=== PATIENT | male | born 1960 ===

== ENCOUNTER 2018-03-09 23:00 | Inpatient (IN) | payer OTHER ==
[~2018-03-09] VITALS: Ht 170.2 cm; Wt 83.0 kg
[2018-03-09 23:30] VITALS: BP 76/45; PULSE 74; TEMP 36.4; O2SAT 94; Ht 170.2 cm; Wt 83.0 kg
[2018-03-10] VITALS (67 sets, daily range): BP systolic 69–132; BP diastolic 36–99; PULSE 52–91; TEMP 36.4–37.1; O2SAT 83–100
[2018-03-10] MEDS ORDERED: ALPR1TAB3 PO (00:03)
[2018-03-10] MEDS ORDERED: HYDR25TA4 PO (00:03)
[2018-03-10] MEDS ORDERED: NOREPINEPHRINE BIT INJ 8 MG in DEXTROSE 5% 500ML 500 ML IV PRN (00:04)
[2018-03-10] MEDS ORDERED: ICU PROTOCOL FOR HYPERGLYCEMIA PRN (00:15)
[2018-03-10] MEDS ORDERED: ONDANSETRON INJ 2 MG/ML 2 ML VIAL IV PRN ×2 (00:15→11:30)
[2018-03-10] MEDS ORDERED: VANCOMYCIN CONSULT ACTIVE PRN (00:15)
[2018-03-10] MEDS ORDERED: PATIENT'S ALLERGY INFO NEEDS ENTERED SCH (00:30)
[2018-03-10] MEDS: SODIUM CHLORIDE 0.9% 1000ML 1,000 ML IV SCH ×2 (00:34→01:06)
[2018-03-10] MEDS ORDERED: PATIENT'S HEIGHT AND/OR WEIGHT NEEDED SCH (00:45)
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
[2018-03-10 01:07] LABS: HEMOGLOBIN 8.5 g/dL (14.0-18.0); MEAN CELL VOLUME 85.7 fL (80-100); MEAN CORPUSCULAR HEMOGLOBIN 30.4 pg (25-34); MEAN CORPUSCULAR HGB CONC 35.4 g/dl (32-36); MEAN PLATELET VOLUME 8.4 fL (7.4-10.4); PLATELET COUNT 248 K/uL (130-400); RED CELL DISTRIBUTION WIDTH CV 14.1 % (11.5-14.5); RED CELL DISTRIBUTION WIDTH SD 44.4 fL (36.4-46.3); WHITE BLOOD COUNT 20.23 K/uL (4.8-10.8)
[2018-03-10 01:16] LABS: INR 1.2 (0.9-1.1); PTT PATIENT 40.1 SECONDS (21.0-31.0)
[2018-03-10 01:29] LABS: ALBUMIN 1.6 gm/dl (3.4-5.0); ALKALINE PHOSPHATASE 124 U/L (45-117); ALT/SGPT 28 U/L (12-78); AST/SGOT 21 U/L (15-37); BLOOD UREA NITROGEN 36 mg/dl (7-18); CALCIUM 7.1 mg/dl (8.5-10.1); CARBON DIOXIDE 19 mmol/L (21-32); CREATININE 2.65 mg/dl (0.60-1.40); GLUCOSE 107 mg/dl (70-99); LIPASE 140 U/L (73-393); PHOSPHORUS 4.3 mg/dl (2.5-4.9); POTASSIUM 2.6 mmol/L (3.5-5.1); SODIUM 133 mmol/L (136-145); TOTAL PROTEIN 5.7 gm/dl (6.4-8.2)
[2018-03-10] MEDS ORDERED: ALBUT/IPRATROP 3MG/0.5MG NEB 3 ML VIAL INH PRN (01:30)
[2018-03-10 01:47] LABS: BASO % 0.1 %; BASO ABS # 0.03 K/uL (0-0.2); EOS % 0.4 %; EOS ABS # 0.08 K/uL (0-0.5); IG# 0.34 K/uL (0.00-0.02); LYMPH ABS # 1.22 K/uL (1.2-3.4); MONO % 6.4 %; NEUT % 85.4 %; NEUT ABS # 17.26 K/uL (1.4-6.5)
[2018-03-10] MEDS: [UNRECOGNIZED DRUG - OTHER] IV SCH ×4 (01:59→19:51)
[2018-03-10] MEDS: ASCORBIC ACID IV SCH ×4 (01:59→19:51)
[2018-03-10] MEDS: THIAMINE HCL IV SCH ×4 (01:59→19:51)
[2018-03-10 02:14] LABS: SODIUM RANDOM URINE 15 mEq/L
[2018-03-10] MEDS ORDERED: POTASSIUM CHLORIDE 10 MEQ TABCR PO ONE (02:15)
[2018-03-10] MEDS: NORMOSOL R 1,000 ML IV SCH ×3 (02:47→19:51)
[2018-03-10] MEDS: MAGNESIUM SULFATE 1GM / D5W 100 ML IV SCH ×4 (02:47→05:43)
[2018-03-10] MEDS ORDERED: VANCOMYCIN IV 1,000 MG in SODIUM CHLORIDE 0.9% 250ML 250 ML IV ONE (04:00)
[2018-03-10] MEDS: CLINDAMYCIN IV 900 MG in DEXTROSE 5% 100ML 100 ML IV SCH ×3 (05:44→22:31)
[2018-03-10] MEDS: HEPARIN SOD 5000 UNIT/0.5 ML CARP SQ SCH ×3 (05:45→22:32)
[2018-03-10 06:27] LABS: BASO % 0.1 %; BASO ABS # 0.02 K/uL (0-0.2); EOS % 0.4 %; EOS ABS # 0.08 K/uL (0-0.5); HEMOGLOBIN 8.9 g/dL (14.0-18.0); IG# 0.19 K/uL (0.00-0.02); LYMPH % 5.4 %; LYMPH ABS # 1.04 K/uL (1.2-3.4); MEAN CELL VOLUME 85.6 fL (80-100); MEAN CORPUSCULAR HEMOGLOBIN 30.5 pg (25-34); MEAN CORPUSCULAR HGB CONC 35.6 g/dl (32-36); MONO ABS # 0.96 K/uL (0.11-0.59); NEUT % 88.1 %; NEUT ABS # 16.88 K/uL (1.4-6.5); PLATELET COUNT 249 K/uL (130-400); RED CELL DISTRIBUTION WIDTH CV 14.2 % (11.5-14.5); RED CELL DISTRIBUTION WIDTH SD 45.4 fL (36.4-46.3); WHITE BLOOD COUNT 19.17 K/uL (4.8-10.8)
[2018-03-10 07:08] LABS: ALBUMIN 1.6 gm/dl (3.4-5.0); ALKALINE PHOSPHATASE 127 U/L (45-117); ALT/SGPT 27 U/L (12-78); AST/SGOT 24 U/L (15-37); BLOOD UREA NITROGEN 35 mg/dl (7-18); CALCIUM 7.6 mg/dl (8.5-10.1); CARBON DIOXIDE 23 mmol/L (21-32); CREATININE 2.43 mg/dl (0.60-1.40); GLUCOSE 124 mg/dl (70-99); POTASSIUM 2.8 mmol/L (3.5-5.1); SODIUM 137 mmol/L (136-145); TOTAL PROTEIN 5.9 gm/dl (6.4-8.2)
--- NOTE | 2018-03-10 07:32 | DIAGNOSTIC IMAGING REPORT ---
CHEST ONE VIEW PORTABLE CLINICAL HISTORY: sepsis dyspnea COMPARISON STUDY: No previous studies for comparison. FINDINGS: Subsegmental atelectasis left mid and lower lung region. Lungs otherwise appear clear. There are no focal infiltrates. Diaphragms are smooth. IMPRESSION: Subsegmental atelectasis left base. Otherwise negative study. The above report was generated using voice recognition software. It may contain grammatical, syntax or spelling errors. Electronically signed by: Aaron Vega M.D. 03/10/2018 7:30 AM Dictated Date/Time: 03/10/2018 7:30 AM
--- NOTE | 2018-03-10 07:34 | DIAGNOSTIC IMAGING REPORT ---
RENAL ULTRASOUND HISTORY: Acute kidney injury. Assess for hydronephrosis. COMPARISON: None. FINDINGS: Right kidney: 8.9 cm. No hydronephrosis. Moderate cortical atrophy/scarring. There is a 1.7 cm hypoechoic exophytic mass within the interpolar region of the right kidney. This demonstrates color flow consistent with internal vascularity. The right renal vein is patent. Left kidney: 12.1 cm. Mild hydronephrosis. Normal corticomedullary differentiation and cortical thickness. Trace perinephric fluid. Bladder: The bladder is completely decompressed by Mast catheter. There appears to bladder wall thickening. The ureteral jets are not identified. IMPRESSION: 1. Mild left hydronephrosis. 2. A 1.7 cm hypoechoic mass within the right kidney. Dedicated renal CT or renal MRI is recommended to assess for a renal cell carcinoma. 3. Bladder wall thickening. This may be accentuated due to the decompression by the Mast catheter. 4. These findings was called/faxed to the referring physician following dictation. Electronically signed by: Kenton Jones M.D. 03/10/2018 7:32 AM Dictated Date/Time: 03/10/2018 7:29 AM
[2018-03-10] MEDS ORDERED: HYDROCORTISONE IV 100 MG in SYRINGE 0 ML IV ONE (08:30)
[2018-03-10] MEDS: POTASSIUM CHLR 20MEQ / WTR IV SCH ×3 (08:31→12:29)
[2018-03-10] MEDS ORDERED: BUPIVACAINE/EPINEPHRINE 0.5% MPF 1:200,000 30 ML VIAL ONE (08:56)
[2018-03-10] MEDS ORDERED: LIDOCAINE HCL 2% 2 ML VIAL (20MG/ML) ONE (09:15)
[2018-03-10] MEDS ORDERED: PHENYLEPHRINE HCL INJ 10 MG/ML VIAL ONE (09:15)
[2018-03-10] MEDS ORDERED: DEXAMETHASONE SOD INJ 4 MG/ML VIAL ONE (09:15)
[2018-03-10] MEDS ORDERED: NEOSTIGMINE METHYLSULFATE 5 MG/5 ML SYR ONE (09:15)
[2018-03-10] MEDS ORDERED: PROPOFOL IV EMULSION 10 MG/ML 20 ML VIAL ONE ×2 (09:15→11:08)
[2018-03-10] MEDS ORDERED: GLYCOPYRROLATE INJ 0.2 MG/ML VIAL ONE (09:15)
[2018-03-10] MEDS ORDERED: ONDANSETRON INJ 2 MG/ML 2 ML VIAL ONE (09:15)
[2018-03-10] MEDS ORDERED: EpHEDrine SULFATE INJ 50 MG/ML AMP ONE (09:15)
[2018-03-10] MEDS ORDERED: FENTANYL CITRATE INJ 50 MCG/1 ML 2 ML VIAL ONE (09:15)
[2018-03-10] MEDS ORDERED: SUCCINYLCHOLINE CHLORIDE 20 MG/ML 10 ML VIAL IV ONE (09:15)
[2018-03-10] MEDS ORDERED: BACITRACIN 50000 UNIT VIAL ONE (09:18)
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
--- NOTE | 2018-03-10 10:47 | Critical Care Consultation ---
Critical Care Consultation Date of Consultation: Mar 10, 2018. Attending Physician: Antony Carver MD, PhD Reason for Consultation: Severe sepsis with septic shock and acute kidney injury History of Present Illness Patient is a 57-year-old male with a significant past medical history for hypertension and remote history of alcohol abuse who currently takes Xanax as needed and he is gone several months without Xanax previously without any form of withdrawal who noticed a red swollen area in the back of the left leg approximately Tuesday. He was placed on ciprofloxacin which ultimately led to this red swollen area becoming larger and spontaneously opened and was draining. He felt ill and presented [place] emergency department yesterday and was ultimately found to be in acute kidney failure and hypotensive, he was started on Levophed by right femoral central line and resuscitated. They did not have surgical capabilities and patient was transferred here for further evaluation and management. Past Medical/Surgical History As noted above Family History FH: heart disease Social History Smoking Status: Current Every Day Smoker Smokeless Tobacco Use: No Alcohol Use: recovering alcoholic Drug Use: cocaine (Remote history several years ago), marijuana (Last use yesterday) Marital Status: () Occupation Status: other (Works jobs, denies formal employment also denies disability) Allergies Coded Allergies: No Known Allergies (Unverified , 03/10/18) Home Medications Scheduled Alprazolam (Xanax), 1 MG PO QID Hydrochlorothiazide (Hctz), 1 TAB PO DAILY Current Inpatient Medications Current Inpatient Medications Medications (Trade) Dose Ordered Sig/Lianna Route Start Time Stop Time Status Last Admin Dose Admin Norepinephrine Bitartrate 8 mg/ Dextrose 508 ml @ 0 mls/hr Q0M PRN IV 03/10/18 00:04 04/09/18 00:03 03/10/18 00:27 15.4 MLS/HR Acetaminophen (Tylenol Tab) 650 mg Q4H PRN PO 03/10/18 00:15 04/09/18 00:14 Ondansetron HCl (Zofran Inj) 4 mg Q6H PRN IV 03/10/18 00:15 04/09/18 00:14 Miscellaneous Information ([facility] Protocol For Hyperglycemia) 1 ea PRN PRN N/A 03/10/18 00:15 03/12/18 00:14 Vancomycin HCl (Consult) 1 ea UD PRN N/A 03/10/18 00:15 04/09/18 00:14 Clindamycin Phosphate 900 mg/ Dextrose 106 ml @ 100 mls/hr Q8H IV 03/10/18 06:00 03/20/18 05:59 03/10/18 05:44 100 MLS/HR Albuterol/ Ipratropium (Duoneb) 3 ml Q4R PRN INH 03/10/18 01:30 04/09/18 01:29 Heparin Sodium (Porcine) (Heparin Sq 5000 Unit/0.5ml) 5,000 unit Q8 SQ 03/10/18 06:00 04/09/18 05:59 03/10/18 05:45 5,000 UNIT Ascorbic Acid 1500 mg/Thiamine HCl 100 mg/Sodium Chloride 104 ml @ 207 mls/hr Q6H IV 03/10/18 02:00 03/13/18 20:31 03/10/18 07:37 207 MLS/HR Parenteral Electrolyte Solution 1,000 ml @ 150 mls/hr Q6H40M IV 03/10/18 02:15 03/10/18 15:34 03/10/18 02:47 150 MLS/HR Potassium Chloride 20 meq/ Prmx 100 ml @ 50 mls/hr Q2H IV 03/10/18 08:30 03/10/18 14:29 03/10/18 10:15 50 MLS/HR Review of Systems A 10 point review of systems has been obtained and is otherwise negative. Constitutional: + fever, + chills Respiratory: No cough, No sputum, No wheezing, No shortness of breath, No dyspnea on exertion, No dyspnea at rest, No hemoptysis, No problem reported Cardiovascular: No chest pain, No orthopnea, No PND, No edema, No claudication , No palpitations, No problem reported Physical Exam Date Time Temp Pulse Resp B/P (MAP) Pulse Ox O2 Delivery O2 Flow Rate FiO2 03/10/18 10:15 83 6 101/55 (70) 98 03/10/18 10:00 87 7 87/42 (57) 90 Nasal Cannula 2.0 03/10/18 09:45 91 21 81/40 (54) 92 03/10/18 09:30 91 16 89/38 (55) 94 03/10/18 09:00 91 22 74/50 (58) 94 03/10/18 08:45 90 23 96/49 (65) 03/10/18 08:30 87 20 98/58 (71) 03/10/18 08:15 83 23 113/59 (77) 100 03/10/18 08:00 36.8 82 20 111/66 (81) 94 Nasal Cannula 2.0 03/10/18 08:00 Room Air 03/10/18 07:45 81 19 113/66 (82) 03/10/18 07:30 82 14 105/72 (83) 98 03/10/18 07:15 77 18 93/56 (68) 94 03/10/18 07:00 79 21 88/63 (71) 95 03/10/18 05:58 79 16 106/57 (73) 93 Nasal Cannula 2.0 03/10/18 05:01 84 23 111/61 (78) 92 Nasal Cannula 2.0 03/10/18 04:01 37.1 77 18 108/59 (75) 03/10/18 03:31 78 17 96/63 (74) 95 Nasal Cannula 2.0 03/10/18 03:01 82 16 109/62 (78) 03/10/18 02:31 77 15 108/58 (75) 97 Nasal Cannula 2.0 03/10/18 02:01 72 15 102/57 (72) 99 Nasal Cannula 2.0 03/10/18 01:46 77 14 115/60 (78) 91 Nasal Cannula 2.0 03/10/18 01:33 73 17 78/50 (59) 97 Nasal Cannula 2.0 03/10/18 01:31 71 21 73/45 (54) 03/10/18 01:14 78 16 96/63 (74) 98 Nasal Cannula 2.0 03/10/18 01:01 75 15 73/41 (52) 03/10/18 00:48 73 17 88/50 (63) 96 Nasal Cannula 2.0 03/10/18 00:31 74 22 76/54 (61) 91 Room Air 03/10/18 00:22 76 24 101/70 (80) 03/10/18 00:01 72 16 69/36 (47) 97 Room Air 03/10/18 00:01 94 Room Air 03/09/18 23:30 36.4 74 16 76/45 94 Room Air General Appearance: WD/WN, moderate distress Head: normocephalic, atraumatic ENT: other (Airway patent) Neck: normal range of motion, no tenderness, trachea midline Respiratory: rhonchi (Scattered bilaterally) Cardiovasular: normal S1S2, abnormal pulses (Decreased perfusion, mildly decreased capillary refill) Genitourinary - Male: other (Mast present) Lower Extremities: other (Area of erythema and draining wound in the popliteal fossa of left lower extremity) Edema: LLE (1+) Pulses: radial (R) (1+), radial (L) (1+) Neuro: alert, oriented x 3, normal motor exam Psychiatric: normal affect Laboratory Results Last 24 Hours Test 03/10/18 00:44 03/10/18 01:03 03/10/18 01:11 03/10/18 01:30 White Blood Count 20.23 K/uL Red Blood Count 2.80 M/uL Hemoglobin 8.5 g/dL Hematocrit 24.0 % Mean Corpuscular Volume 85.7 fL Mean Corpuscular Hemoglobin 30.4 pg Mean Corpuscular Hemoglobin Concent 35.4 g/dl Platelet Count 248 K/uL Mean Platelet Volume 8.4 fL Neutrophils (%) (Auto) 85.4 % Lymphocytes (%) (Auto) 6.0 % Monocytes (%) (Auto) 6.4 % Eosinophils (%) (Auto) 0.4 % Basophils (%) (Auto) 0.1 % Neutrophils # (Auto) 17.26 K/uL Lymphocytes # (Auto) 1.22 K/uL Monocytes # (Auto) 1.30 K/uL Eosinophils # (Auto) 0.08 K/uL Basophils # (Auto) 0.03 K/uL RDW Standard Deviation 44.4 fL RDW Coefficient of Variation 14.1 % Immature Granulocyte % (Auto) 1.7 % Immature Granulocyte # (Auto) 0.34 K/uL Dohle Bodies 1+ Prothrombin Time 13.0 SECONDS Prothromb Time International Ratio 1.2 Activated Partial Thromboplast Time 40.1 SECONDS Partial Thromboplastin Ratio 1.5 Sodium Level 133 mmol/L Potassium Level 2.6 mmol/L Chloride Level 103 mmol/L Carbon Dioxide Level 19 mmol/L Anion Gap 11.0 mmol/L Blood Urea Nitrogen 36 mg/dl Creatinine 2.65 mg/dl Est Creatinine Clear Calc Drug Dose 30.8 ml/min Estimated GFR () 29.3 Estimated GFR (Non- 25.2 BUN/Creatinine Ratio 13.5 Random Glucose 107 mg/dl Lactic Acid Level 0.7 mmol/L Calcium Level 7.1 mg/dl Phosphorus Level 4.3 mg/dl Magnesium Level 1.2 mg/dl Total Bilirubin 1.0 mg/dl Direct Bilirubin 0.6 mg/dl Aspartate Amino Transf (AST/SGOT) 21 U/L Alanine Aminotransferase (ALT/SGPT) 28 U/L Alkaline Phosphatase 124 U/L Total Creatine Kinase 44 U/L Troponin I < 0.015 ng/ml Total Protein 5.7 gm/dl Albumin 1.6 gm/dl Globulin 4.1 gm/dl Albumin/Globulin Ratio 0.4 Lipase 140 U/L Random Cortisol 12.84 mcg/dl Ethyl Alcohol mg/dL < 3.0 mg/dl Hepatitis C Antibody Screen NEG Venous Blood pH 7.27 Venous Blood Partial Pressure CO2 48 mmHg Venous Blood Partial Pressure O2 32 mmHg Venous Blood HCO3 22 mmol/L Venous Blood Oxygen Saturation < 60.0 % Venous Blood Base Excess -5.0 mEq/L Urine Color YELLOW Urine Appearance CLOUDY Urine pH 5.0 Urine Specific Alexander 1.008 Urine Protein 1+ Urine Glucose (UA) NEG Urine Ketones NEG Urine Occult Blood NEG Urine Nitrite NEG Urine Bilirubin NEG Urine Urobilinogen NEG Urine Leukocyte Esterase NEG Urine WBC (Auto) 1-5 /hpf Urine RBC (Auto) 0-4 /hpf Urine Hyaline Casts (Auto) 5-10 /lpf Urine Epithelial Cells (Auto) >30 /lpf Urine Bacteria (Auto) NEG Urine Yeast (Auto) Urine Random Sodium 15 mEq/L Urine Random Urea Nitrogen 305 mg/dl Urine Opiates Screen POS Urine Methadone, Qualitative NEG Urine Barbiturates NEG Urine Phencyclidine (PCP) Level NEG Ur Amphetamine/Methamphetamine NEG MDMA (Ecstasy) Screen NEG Urine Benzodiazepines Screen POS Urine Cocaine Metabolite NEG Urine Marijuana (THC) POS Test 03/10/18 06:12 White Blood Count 19.17 K/uL Red Blood Count 2.92 M/uL Hemoglobin 8.9 g/dL Hematocrit 25.0 % Mean Corpuscular Volume 85.6 fL Mean Corpuscular Hemoglobin 30.5 pg Mean Corpuscular Hemoglobin Concent 35.6 g/dl Platelet Count 249 K/uL Mean Platelet Volume 8.0 fL Neutrophils (%) (Auto) 88.1 % Lymphocytes (%) (Auto) 5.4 % Monocytes (%) (Auto) 5.0 % Eosinophils (%) (Auto) 0.4 % Basophils (%) (Auto) 0.1 % Neutrophils # (Auto) 16.88 K/uL Lymphocytes # (Auto) 1.04 K/uL Monocytes # (Auto) 0.96 K/uL Eosinophils # (Auto) 0.08 K/uL Basophils # (Auto) 0.02 K/uL RDW Standard Deviation 45.4 fL RDW Coefficient of Variation 14.2 % Immature Granulocyte % (Auto) 1.0 % Immature Granulocyte # (Auto) 0.19 K/uL Dohle Bodies 1+ Sodium Level 137 mmol/L Potassium Level 2.8 mmol/L Chloride Level 104 mmol/L Carbon Dioxide Level 23 mmol/L Anion Gap 10.0 mmol/L Blood Urea Nitrogen 35 mg/dl Creatinine 2.43 mg/dl Est Creatinine Clear Calc Drug Dose 33.6 ml/min Estimated GFR () 32.5 Estimated GFR (Non- 28.0 BUN/Creatinine Ratio 14.5 Random Glucose 124 mg/dl Calcium Level 7.6 mg/dl Magnesium Level 2.4 mg/dl Total Bilirubin 0.9 mg/dl Direct Bilirubin mg/dl Aspartate Amino Transf (AST/SGOT) 24 U/L Alanine Aminotransferase (ALT/SGPT) 27 U/L Alkaline Phosphatase 127 U/L Total Protein 5.9 gm/dl Albumin 1.6 gm/dl Chemistry Specimen Hemolysis Assessment & Plan Reason Critically Ill: 57-year-old male who is in severe sepsis secondary to a complicated skin and soft tissue infection of the left lower extremity PLAN: Neuro: History of alcohol abuse -Xanax 0.5 mg p.o. every 6 hours as needed anxiety Resp: Supplemental oxygen as needed Tobacco dependence -Smoking cessation CV: Hypotension -Likely secondary to sepsis -Reviewed random cortisol given 100 mg Solu-Cortef bolus 1 Fluids/Renal: Acute kidney injury Hypokalemia -60 meq KCl via IV -Given 40 mEq by mouth earlier -Recheck BMP at 2 PM ID: Severe sepsis with septic shock -Vancomycin and clindamycin -Going urgently to operating room for source control GI/Nutrition: Hypoalbuminemia -Unclear etiology may represent poor nutritional intake N.p.o. prior to surgery Heme: DVT prophylaxis -Heparin 5000 units every 8 hours Anemia -Unclear etiology at this time we will send iron studies: Ferritin within normal limits trans-ferritin and saturation is low which can be seen in the setting of acute disease -Reticulocyte count within normal limits -Question pre-existing renal disease since patient was hypokalemic and possibly low on erythropoietin, will send haptoglobin to exclude hemolysis Endocrine: Possible relative adrenal insufficiency -Solu-Cortef 1 -Send TSH and T4: Within normal limits Vascular access: Right femoral triple-lumen Code Status: Full I have personally spent 60 minutes of critical care time in the direct management of this patient. This is a life/limb threatening event. This includes time spent evaluating patient, direct bedside care, chart review, placing orders, interpretation of diagnostic studies, discussion with consultants, patient, and/or family members regarding treatment decisions, as well as other required patient management activities. This time is exclusive of all separately billable procedures, and teaching time and separate from and in addition to any other critical care service time.
[2018-03-10] MEDS ORDERED: KETAMINE HCL INJ 50 MG/ML 10 ML VIAL ONE (10:56)
[2018-03-10] MEDS ORDERED: FAMOTIDINE IV INJ 20 MG in SYRINGE 3 ML IV SCH (11:00)
--- NOTE | 2018-03-10 11:08 | [facility] Post Operative Brief Note ---
Immediate Operative Summary Operative Date Mar 10, 2018. Pre-Operative Diagnosis abcess left posterior leg Post-Operative Diagnosis same Procedure(s) Performed incision and drainage/sharp debridement LLE wound/abcess Surgeon Marek Oracle Erp Architect Surgeon(s) GARRETT David Estimated Blood Loss 5 cc Findings Consistent with Post-Op Diagnosis Specimens wound cx Drains None Complication(s) none
[2018-03-10] MEDS ORDERED: ETOMIDATE 2 MG/ML 20 ML VIAL IV ONE (11:09)
[2018-03-10] MEDS ORDERED: EpHEDrine SULFATE INJ 50 MG/ML AMP IV PRN (11:30)
[2018-03-10] MEDS ORDERED: ATROPINE SULFATE 0.1 MG/ML 5ML SYR IV PRN (11:30)
[2018-03-10] MEDS ORDERED: FENTANYL CITRATE INJ 50 MCG/1 ML 2 ML VIAL IV PRN (11:30)
[2018-03-10] MEDS: ALPRAZOLAM 0.5 MG TAB PO PRN (11:32)
--- NOTE | 2018-03-10 12:08 | [facility] Operative Report ---
Operative Report Operative Date Mar 10, 2018. Pre-Operative Diagnosis abcess left posterior leg Post-Operative Diagnosis same Procedure(s) Performed incision and drainage/sharp debridement LLE wound/abcess Surgeon Marek Punch Machine Operator Surgeon(s) GARRETT Dvaid Estimated Blood Loss 5 cc Specimens wound cx Drains None Anesthesia Type MAC Complication(s) none Description of Procedure After informed consent was obtained the patient was brought from the intensive care unit to the operating room and placed in supine position. IV sedation was administered by anesthesia and titrated to effect. After this we put him in a frog-leg position and sterilely prepped and draped the area of the abscess. There was already a small opening in the skin. I used a 15 blade scalpel to extend this both laterally and medially. I did take wound cultures. There was a small amount of debris which I used a sharp knife to excise. This included skin and soft tissue down the muscle itself. I finger fractionated any necrotic looking tissue. I opened the incision to where there was no more undermining. I then thoroughly irrigated the wound. I packed with half-inch iodoform packing covered with gauze and Kerry wrap. The patient was then awakened and transferred to the intensive care unit in guarded condition. I attest to the content of the Intraoperative Record and any orders documented therein. Any exceptions are noted below.
[2018-03-10 12:14] LABS: RETIC COUNT % 1.2 % (0.5-2.0)
--- NOTE | 2018-03-10 12:15 | Anesthesiology Progress Note ---
Anesthesia Post Op Note Date & Time Mar 10, 2018 at 12:15 Vital Signs Pain Intensity: 0 Vital Signs Past 12 Hours Date Time Temp Pulse Resp B/P (MAP) Pulse Ox O2 Delivery O2 Flow Rate FiO2 03/10/18 12:02 36.4 75 15 82/48 94 Room Air 03/10/18 11:52 75 16 88/42 97 Room Air 03/10/18 11:42 72 16 95/62 92 Room Air 03/10/18 11:32 75 16 105/66 94 Room Air 03/10/18 11:22 36.4 78 14 81/47 94 Room Air 03/10/18 10:15 83 6 101/55 (70) 98 03/10/18 10:00 87 7 87/42 (57) 90 Nasal Cannula 2.0 03/10/18 09:45 91 21 81/40 (54) 92 03/10/18 09:30 91 16 89/38 (55) 94 03/10/18 09:00 91 22 74/50 (58) 94 03/10/18 08:45 90 23 96/49 (65) 03/10/18 08:30 87 20 98/58 (71) 03/10/18 08:15 83 23 113/59 (77) 100 03/10/18 08:00 36.8 82 20 111/66 (81) 94 Nasal Cannula 2.0 03/10/18 08:00 Room Air 03/10/18 07:45 81 19 113/66 (82) 03/10/18 07:30 82 14 105/72 (83) 98 03/10/18 07:15 77 18 93/56 (68) 94 03/10/18 07:00 79 21 88/63 (71) 95 03/10/18 05:58 79 16 106/57 (73) 93 Nasal Cannula 2.0 03/10/18 05:01 84 23 111/61 (78) 92 Nasal Cannula 2.0 03/10/18 04:01 37.1 77 18 108/59 (75) 03/10/18 03:31 78 17 96/63 (74) 95 Nasal Cannula 2.0 03/10/18 03:01 82 16 109/62 (78) 03/10/18 02:31 77 15 108/58 (75) 97 Nasal Cannula 2.0 03/10/18 02:01 72 15 102/57 (72) 99 Nasal Cannula 2.0 03/10/18 01:46 77 14 115/60 (78) 91 Nasal Cannula 2.0 03/10/18 01:33 73 17 78/50 (59) 97 Nasal Cannula 2.0 03/10/18 01:31 71 21 73/45 (54) 03/10/18 01:14 78 16 96/63 (74) 98 Nasal Cannula 2.0 03/10/18 01:01 75 15 73/41 (52) 03/10/18 00:48 73 17 88/50 (63) 96 Nasal Cannula 2.0 03/10/18 00:31 74 22 76/54 (61) 91 Room Air 03/10/18 00:22 76 24 101/70 (80) Notes Mental Status: alert / awake / arousable, participated in evaluation Pt Amnestic to Procedure: Yes Nausea / Vomiting: adequately controlled Pain: adequately controlled Airway Patency, RR, SpO2: stable & adequate BP & HR: stable & adequate Hydration State: stable & adequate Anesthetic Complications: no major complications apparent
[2018-03-10 12:59] LABS: CALCIUM 7.9 mg/dl (8.5-10.1); CREATININE 2.57 mg/dl (0.60-1.40); POTASSIUM 3.6 mmol/L (3.5-5.1)
--- NOTE | 2018-03-10 13:47 | Pharmacy Progress Note ---
Pharmacy Abx Dose Short Note Date of Service Mar 10, 2018. Assessment & Plan Assessment * 57 year old male transferred from [facility] secondary to septic shock likely from LLE cellulitis w/ open draining wound on posterior L knee * Currently requiring vasopressors (norepi), hydrocortisone IV x 1 given this AM for marginal random cortisol in the setting of significant stress * Off to OR for source control this AM * Pt had been receiving levofloxacin for several days prior to admission. Empiric Vancomycin + Clindamycin ordered. * Lactate not elevated, leukocytosis present on labs, procal ordered w/ AM labs tomorrow * SCr elevated. Baseline renal fxn unclear. U.O. good since admission. * BLCX's and leg drainage CX's pending. Nares were not colonized with MRSA Plan Vancomycin * Received 1000mg TOP STEEP TENDER 03/09 @2100 * Additional 1000mg x 1 given this AM @421 to complete loading * Maint dose: 1250mg (14.5mg/kg) IV Q 24 hours * Goal trough level for sepsis : 15 to 20 mcg/mL * Trough level ordered 03/13/18 w/ 3rd maint dose * P'kinetic estimates: Vd 0.7L/kg; half-life ~21-22 hours Pharmacy will continue to follow and will adjust dose/frequency as necessary. Thank you.
--- NOTE | 2018-03-10 14:05 | DIAGNOSTIC IMAGING REPORT ---
LOWER EXT JOINT WITHOUT CLINICAL HISTORY: 57 years-old Male presenting with septic shock, wound in popliteal fossa. TECHNIQUE: Multisequence, multiplanar MR imaging of the left knee was performed without the use of intravenous contrast. IV contrast: None. COMPARISON: 03/09/2018. FINDINGS: Localizer images: Unremarkable. Bone marrow: Normal bone marrow signal intensity. No bony edema. Articular cartilage: Articular cartilage preserved. Menisci: Medial and lateral menisci intact. Cruciate ligaments: Anterior and posterior cruciate ligaments intact. Collateral ligaments: Medial collateral ligament intact. Lateral collateral ligament complex including the biceps femoris tendon, fibular collateral ligament, popliteal tendon, and iliotibial band intact. Quadriceps and patellar tendons: Increased signal intensity of the origin of the patellar tendon consistent with tendinosis. Medial and lateral patellar retinacula intact. Quadriceps tendon intact. Joint effusion: Small knee joint effusion. No popliteal cyst. Muscle: Normal muscle bulk and muscle signal intensity. Superficial soft tissue: Extensive subcutaneous edema in the posterior and medial aspect of the knee at the level of the popliteal fossa. There is an open wound at this site with packing material. The wound does not extend deep to the muscular fascia. Allowing for noncontrast technique, no gross evidence of an abscess. IMPRESSION: 1. Open wound at the medial aspect of the popliteal fossa with extensive surrounding cellulitis. Inflammatory change does not extend deep to the muscular fascia. No gross evidence of abscess. No osteomyelitis. 2. Small knee joint effusion. 3. Patellar tendinosis. Electronically signed by: Jose Manuel Silva M.D. 03/10/2018 2:03 PM Dictated Date/Time: 03/10/2018 1:56 PM
--- NOTE | 2018-03-10 15:23 | Progress Note ---
Subjective Date of Service: Mar 10, 2018. Subjective Pt evaluation today including: conversation w/ patient, physical exam, chart review, lab review, review of studies, conversation w/ decorator consultant, review of inpatient medication list Patient came back from the operation room S/P abbess left posterior leg I&D, mild confused, he is pleasant, Review of Systems Constitutional: + problem reported (Not able to obtain because he just came out from the operation room, mild lethargic) Objective Vital Signs Date Time Temp Pulse Resp B/P (MAP) Pulse Ox O2 Delivery O2 Flow Rate FiO2 03/10/18 14:45 60 14 99/61 (74) 98 Nasal Cannula 2.0 03/10/18 14:30 60 15 101/64 (76) 98 Nasal Cannula 2.0 03/10/18 14:15 61 11 94/64 (74) 87 Room Air 03/10/18 14:00 56 16 132/73 (92) 96 Room Air 03/10/18 12:31 71 18 100/52 (68) 03/10/18 12:26 74 16 105/55 (72) 92 Room Air 03/10/18 12:23 77 17 93/47 (62) 83 03/10/18 12:16 75 19 89/58 (68) 93 03/10/18 12:11 69 20 81/57 (65) 96 03/10/18 12:05 36.4 74 15 82/48 (59) 93 Room Air 03/10/18 12:02 36.4 75 15 82/48 94 Room Air 03/10/18 11:52 75 16 88/42 97 Room Air 03/10/18 11:42 72 16 95/62 92 Room Air 03/10/18 11:32 75 16 105/66 94 Room Air 03/10/18 11:22 36.4 78 14 81/47 94 Room Air 03/10/18 10:15 83 6 101/55 (70) 98 03/10/18 10:00 87 7 87/42 (57) 90 Nasal Cannula 2.0 03/10/18 09:45 91 21 81/40 (54) 92 03/10/18 09:30 91 16 89/38 (55) 94 03/10/18 09:00 91 22 74/50 (58) 94 03/10/18 08:45 90 23 96/49 (65) 03/10/18 08:30 87 20 98/58 (71) 03/10/18 08:15 83 23 113/59 (77) 100 03/10/18 08:00 36.8 82 20 111/66 (81) 94 Nasal Cannula 2.0 03/10/18 08:00 Nasal Cannula 03/10/18 08:00 Room Air 03/10/18 07:45 81 19 113/66 (82) 03/10/18 07:30 82 14 105/72 (83) 98 03/10/18 07:15 77 18 93/56 (68) 94 03/10/18 07:00 79 21 88/63 (71) 95 03/10/18 05:58 79 16 106/57 (73) 93 Nasal Cannula 2.0 03/10/18 05:01 84 23 111/61 (78) 92 Nasal Cannula 2.0 03/10/18 04:01 37.1 77 18 108/59 (75) 03/10/18 03:31 78 17 96/63 (74) 95 Nasal Cannula 2.0 03/10/18 03:01 82 16 109/62 (78) 03/10/18 02:31 77 15 108/58 (75) 97 Nasal Cannula 2.0 03/10/18 02:01 72 15 102/57 (72) 99 Nasal Cannula 2.0 03/10/18 01:46 77 14 115/60 (78) 91 Nasal Cannula 2.0 03/10/18 01:33 73 17 78/50 (59) 97 Nasal Cannula 2.0 03/10/18 01:31 71 21 73/45 (54) 03/10/18 01:14 78 16 96/63 (74) 98 Nasal Cannula 2.0 03/10/18 01:01 75 15 73/41 (52) 03/10/18 00:48 73 17 88/50 (63) 96 Nasal Cannula 2.0 03/10/18 00:31 74 22 76/54 (61) 91 Room Air 03/10/18 00:22 76 24 101/70 (80) 03/10/18 00:01 72 16 69/36 (47) 97 Room Air 03/10/18 00:01 94 Room Air 03/09/18 23:30 36.4 74 16 76/45 94 Room Air Physical Exam General Appearance: WD/WN, no apparent distress, + thin, + pertinent finding ( Chronic ill looking) Eyes: normal inspection, PERRL, EOMI, sclerae normal ENT: normal ENT inspection, hearing grossly normal, pharynx normal Neck: supple, no adenopathy, thyroid normal, no JVD, no carotid bruits, trachea midline Respiratory/Chest: chest non-tender, normal breath sounds, no respiratory distress, no accessory muscle use, + decreased breath sounds Cardiovascular: regular rate, rhythm, no edema, no gallop, no JVD, no murmur Abdomen: normal bowel sounds, non tender, soft, no organomegaly, no pulsatile mass Extremities: normal range of motion, non-tender, normal inspection, no pedal edema, no calf tenderness, normal capillary refill, pelvis stable Neurologic/Psychiatric: 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4 % Basophils (%) (Auto) 0.1 % Neutrophils # (Auto) 17.26 K/uL Lymphocytes # (Auto) 1.22 K/uL Monocytes # (Auto) 1.30 K/uL Eosinophils # (Auto) 0.08 K/uL Basophils # (Auto) 0.03 K/uL RDW Standard Deviation 44.4 fL RDW Coefficient of Variation 14.1 % Immature Granulocyte % (Auto) 1.7 % Immature Granulocyte # (Auto) 0.34 K/uL Dohle Bodies 1+ Prothrombin Time 13.0 SECONDS Prothromb Time International Ratio 1.2 Activated Partial Thromboplast Time 40.1 SECONDS Partial Thromboplastin Ratio 1.5 Sodium Level 133 mmol/L Potassium Level 2.6 mmol/L Chloride Level 103 mmol/L Carbon Dioxide Level 19 mmol/L Anion Gap 11.0 mmol/L Blood Urea Nitrogen 36 mg/dl Creatinine 2.65 mg/dl Est Creatinine Clear Calc Drug Dose 30.8 ml/min Estimated GFR () 29.3 Estimated GFR (Non- 25.2 BUN/Creatinine Ratio 13.5 Random Glucose 107 mg/dl Lactic Acid Level 0.7 mmol/L Calcium Level 7.1 mg/dl Phosphorus Level 4.3 mg/dl Magnesium Level 1.2 mg/dl Total Bilirubin 1.0 mg/dl Direct Bilirubin 0.6 mg/dl Aspartate Amino Transf (AST/SGOT) 21 U/L Alanine Aminotransferase (ALT/SGPT) 28 U/L Alkaline Phosphatase 124 U/L Total Creatine Kinase 44 U/L Troponin I < 0.015 ng/ml Total Protein 5.7 gm/dl Albumin 1.6 gm/dl Globulin 4.1 gm/dl Albumin/Globulin Ratio 0.4 Lipase 140 U/L Random Cortisol 12.84 mcg/dl Ethyl Alcohol mg/dL < 3.0 mg/dl Hepatitis C Antibody Screen NEG Venous Blood pH 7.27 Venous Blood Partial Pressure CO2 48 mmHg Venous Blood Partial Pressure O2 32 mmHg Venous Blood HCO3 22 mmol/L Venous Blood Oxygen Saturation < 60.0 % Venous Blood Base Excess -5.0 mEq/L Urine Color YELLOW Urine Appearance CLOUDY Urine pH 5.0 Urine Specific Union 1.008 Urine Protein 1+ Urine Glucose (UA) NEG Urine Ketones NEG Urine Occult Blood NEG Urine Nitrite NEG Urine Bilirubin NEG Urine Urobilinogen NEG Urine Leukocyte Esterase NEG Urine WBC (Auto) 1-5 /hpf Urine RBC (Auto) 0-4 /hpf Urine Hyaline Casts (Auto) 5-10 /lpf Urine Epithelial Cells (Auto) >30 /lpf Urine Bacteria (Auto) NEG Urine Yeast (Auto) Urine Random Sodium 15 mEq/L Urine Random Urea Nitrogen 305 mg/dl Urine Opiates Screen POS Urine Methadone, Qualitative NEG Urine Barbiturates NEG Urine Phencyclidine (PCP) Level NEG Ur Amphetamine/Methamphetamine NEG MDMA (Ecstasy) Screen NEG Urine Benzodiazepines Screen POS Urine Cocaine Metabolite NEG Urine Marijuana (THC) POS Test 03/10/18 06:12 03/10/18 12:05 03/10/18 12:06 03/10/18 14:11 White Blood Count 19.17 K/uL Red Blood Count 2.92 M/uL Hemoglobin 8.9 g/dL Hematocrit 25.0 % Mean Corpuscular Volume 85.6 fL Mean Corpuscular Hemoglobin 30.5 pg Mean Corpuscular Hemoglobin Concent 35.6 g/dl Platelet Count 249 K/uL Mean Platelet Volume 8.0 fL Neutrophils (%) (Auto) 88.1 % Lymphocytes (%) (Auto) 5.4 % Monocytes (%) (Auto) 5.0 % Eosinophils (%) (Auto) 0.4 % Basophils (%) (Auto) 0.1 % Neutrophils # (Auto) 16.88 K/uL Lymphocytes # (Auto) 1.04 K/uL Monocytes # (Auto) 0.96 K/uL Eosinophils # (Auto) 0.08 K/uL Basophils # (Auto) 0.02 K/uL RDW Standard Deviation 45.4 fL RDW Coefficient of Variation 14.2 % Immature Granulocyte % (Auto) 1.0 % Immature Granulocyte # (Auto) 0.19 K/uL Dohle Bodies 1+ Sodium Level 137 mmol/L 139 mmol/L Potassium Level 2.8 mmol/L 3.6 mmol/L Chloride Level 104 mmol/L 107 mmol/L Carbon Dioxide Level 23 mmol/L 20 mmol/L Anion Gap 10.0 mmol/L 12.0 mmol/L Blood Urea Nitrogen 35 mg/dl 32 mg/dl Creatinine 2.43 mg/dl 2.57 mg/dl Est Creatinine Clear Calc Drug Dose 33.6 ml/min 32.4 ml/min Estimated GFR () 32.5 30.4 Estimated GFR (Non- 28.0 26.2 BUN/Creatinine Ratio 14.5 12.5 Random Glucose 124 mg/dl 165 mg/dl Calcium Level 7.6 mg/dl 7.9 mg/dl Magnesium Level 2.4 mg/dl Total Bilirubin 0.9 mg/dl Direct Bilirubin mg/dl Aspartate Amino Transf (AST/SGOT) 24 U/L Alanine Aminotransferase (ALT/SGPT) 27 U/L Alkaline Phosphatase 127 U/L Total Protein 5.9 gm/dl Albumin 1.6 gm/dl Chemistry Specimen Hemolysis Ionized Calcium 1.10 mmol/l Vitamin B12 Level 453 pg/mL Folate 9.37 ng/mL Absolute Reticulocyte Count 0.04 10^6/uL Percent Reticulocyte Count 1.2 % Iron Level 20 mcg/dl Total Iron Binding Capacity 117 mcg/dl Transferrin 95 mg/dl Transferrin % Saturation 15 % Ferritin 820.0 ng/ml Thyroid Stimulating Hormone (TSH) 0.518 uIu/ml Assessment and Plan 57yo male transferred from [facility] with suspected septic shock Septic shock from left lower extremity abscess Left lower extremity abscess s/P I$D, history of insect bit CT at OSH with no evidence of the former cont Vancomycin and Clindamycin cont Vitamin C and Thiamine Potassium secondary from septic shock, continue Levophed gtt, titrate for goal MAP of 65, a central line in the right groin area continue IV fluid His active smoking, will consult to quit smoking if he agreed to, Kidney failure with BUN=40, Cr=3.4. Upon admission unknown baseline renal function Avoid nephrotoxic agents Mildly anemic patient has no sign of acute bleeding now, will follow up Check stool Hemoccult, vitamin B12 folic acid and iron panel, GI and DVT prophylaxis covered, discussed with bulb sorter Continued [facility] stay due to: multiple IV medications needed Discharge planning: home
--- NOTE | 2018-03-10 16:03 | ECHOCARDIOGRAM REPORT ---
*NOTICE TO RECEIVING CONSTITUTION PARTY AGENCY This information is strictly Confidential and protected under [place] law. [place] law prohibits you from making any further disclosure of this information unless further disclosure is expressly permitted by the written consent of the person to whom it pertains or is authorized by law. A general authorization for the release of medical or other information is not sufficient for this purpose. Hospital accepts no responsibility if the information is made available to any other person, INCLUDING THE PATIENT. Interpretation Summary * Name: MAHESH CHAUDHARY Study Date: 03/10/2018 07:03 AM BP: 108/59 mmHg * Patient Location: .MSICU\[id number]\E103\S\1 HR: 77 * : 1960 (M/d/yyyy) Gender: Male Height: 67 in * Age: 57 yrs Ethnicity: DC Weight: 180 lb * Ordering Physician: Erin Hobbs * Referring Physician: No Doctor, Assigned * Performed By: Matilde Chaney RCS * * Reason For Study: Shock * BSA: 1.9 m2 * -- Conclusions -- * Left ventricular systolic function is normal. * Diastolic dysfunction, Grade II (pseudonormalization pattern). * The right ventricle is normal in size and function. * The right atrium is mildly dilated. * There is mild to moderate tricuspid regurgitation. * Right ventricular systolic pressure is elevated at 40-50mmHg. Procedure Details * A complete two-dimensional transthoracic echocardiogram was performed (2D, M-mode, Doppler and color flow Doppler). Left Ventricle * The left ventricle is grossly normal size. * There is normal left ventricular wall thickness. * Left ventricular systolic function is normal. * Ejection Fraction = 50-55%. * Diastolic dysfunction, Grade II (pseudonormalization pattern). * The left ventricular wall motion is normal. Right Ventricle * The right ventricle is normal in size and function. * The right ventricular systolic function is normal as assessed by tricuspid annular plane systolic excursion (TAPSE) (normal >1.5 cm). Atria * The left atrial size is normal. * The right atrium is mildly dilated. Mitral Valve * The mitral valve is grossly normal. * Significant mitral regurgitation is absent. Tricuspid Valve * The tricuspid valve is not well visualized, but is grossly normal. * There is mild to moderate tricuspid regurgitation. * Right ventricular systolic pressure is elevated at 40-50mmHg. Aortic Valve * The aortic valve is normal in structure and function. * No hemodynamically significant valvular aortic stenosis. * There is no significant aortic regurgitation. Pulmonic Valve * The pulmonic valve is not well seen, but is grossly normal. Pericardium/Pleural * There is no pericardial effusion. MMode 2D Measurements and Calculations IVSd 1.0 cm IVSs 1.4 cm LVIDd 5.1 cm LVIDs 3.4 cm LVPWd 1.0 cm LVPWs 1.5 cm IVS/LVPW 0.98 FS 34.9 % EDV(Teich) 126.5 ml ESV(Teich) 45.8 ml EF(Teich) 63.8 % EDV(cubed) 136.4 ml ESV(cubed) 37.7 ml EF(cubed) 72.4 % % IVS thick 34.7 % % LVPW thick 47.3 % LV mass(C)d 197.6 grams LV mass(C)dI 102.2 grams/m\S\2 LV mass(C)s 171.9 grams LV mass(C)sI 88.9 grams/m\S\2 SV(Teich) 80.7 ml SI(Teich) 41.7 ml/m\S\2 SV(cubed) 98.8 ml SI(cubed) 51.1 ml/m\S\2 Ao root diam 3.8 cm Ao root area 11.6 cm\S\2 ACS 1.4 cm LA dimension 3.7 cm asc Aorta Diam 3.4 cm LA/Ao 0.95 EDV(MOD-sp4) 115.0 ml ESV(MOD-sp4) 51.0 ml EF(MOD-sp4) 55.7 % EDV(MOD-sp2) 110.0 ml ESV(MOD-sp2) 52.0 ml EF(MOD-sp2) 52.7 % SV(MOD-sp4) 64.0 ml SI(MOD-sp4) 33.1 ml/m\S\2 SV(MOD-sp2) 58.0 ml SI(MOD-sp2) 30.0 ml/m\S\2 Doppler Measurements and Calculations MV E max ary 101.8 cm/sec MV A max ary 86.5 cm/sec MV E/A 1.2 MV P1/2t max ary 133.3 cm/sec MV P1/2t 69.8 msec MVA(P1/2t) 3.2 cm\S\2 MV dec slope 559.1 cm/sec\S\2 MV dec time 0.21 sec Ao V2 max 184.0 cm/sec Ao max PG 13.5 mmHg Ao max PG (full) 4.1 mmHg LV V1 max PG 9.4 mmHg LV V1 max 153.6 cm/sec PA V2 max 128.9 cm/sec PA max PG 6.7 mmHg TR max ary 305.5 cm/sec
[2018-03-11] VITALS (25 sets, daily range): BP systolic 81–128; BP diastolic 41–71; PULSE 53–84; TEMP 36.5–38.6; O2SAT 92–100
[2018-03-11] MEDS: NORMOSOL R 1,000 ML IV SCH ×2 (00:50→05:50)
[2018-03-11] MEDS: THIAMINE HCL IV SCH ×2 (01:41→07:44)
[2018-03-11] MEDS: [UNRECOGNIZED DRUG - OTHER] IV SCH ×2 (01:41→07:44)
[2018-03-11] MEDS: ASCORBIC ACID IV SCH ×2 (01:41→07:44)
[2018-03-11] MEDS: VANCOMYCIN IV 1,250 MG in SODIUM CHLORIDE 0.9% 250ML 250 ML IV SCH (03:43)
[2018-03-11 04:53] LABS: BASO % 0.1 %; BASO ABS # 0.01 K/uL (0-0.2); EOS % 0.3 %; EOS ABS # 0.04 K/uL (0-0.5); HEMATOCRIT 25.9 % (42-52); HEMOGLOBIN 8.7 g/dL (14.0-18.0); IG# 0.11 K/uL (0.00-0.02); LYMPH % 7.1 %; LYMPH ABS # 1.01 K/uL (1.2-3.4); MEAN CELL VOLUME 86.6 fL (80-100); MEAN CORPUSCULAR HEMOGLOBIN 29.1 pg (25-34); MEAN CORPUSCULAR HGB CONC 33.6 g/dl (32-36); MEAN PLATELET VOLUME 8.2 fL (7.4-10.4); MONO % 5.8 %; MONO ABS # 0.82 K/uL (0.11-0.59); NEUT % 85.9 %; NEUT ABS # 12.22 K/uL (1.4-6.5); PLATELET COUNT 303 K/uL (130-400); RED CELL DISTRIBUTION WIDTH CV 14.5 % (11.5-14.5); WHITE BLOOD COUNT 14.21 K/uL (4.8-10.8)
[2018-03-11 05:30] LABS: CALCIUM 7.9 mg/dl (8.5-10.1); CREATININE 2.07 mg/dl (0.60-1.40); PHOSPHORUS 3.8 mg/dl (2.5-4.9)
[2018-03-11] MEDS: CLINDAMYCIN IV 900 MG in DEXTROSE 5% 100ML 100 ML IV SCH (05:50)
[2018-03-11] MEDS: HEPARIN SOD 5000 UNIT/0.5 ML CARP SQ SCH ×3 (05:57→21:40)
[2018-03-11] MEDS ORDERED: POTASSIUM CHLORIDE 20 MEQ TABCR PO STA ×2 (07:42→08:15)
--- NOTE | 2018-03-11 07:47 | Critical Care Progress Note ---
Critical Care Progress Note Date of Service Mar 11, 2018. ICU Day ICU Day Number: [address] Mayfield Subjective Pain well-controlled, feels much improved, desires to have diet progressed. Objective General: Alert. nontoxic. Skin: Warm, dry, Head: Atraumatic Ears, nose, mouth and throat: airway patent Cardiovascular: Normal peripheral perfusion Respiratory: no respiratory distress Gastrointestinal: Non distended Musculoskeletal: Dressings in place of left lower extremity Assessment & Plan Reason Critically Ill: 57-year-old male who is in severe sepsis secondary to a complicated skin and soft tissue infection of the left lower extremity PLAN: Neuro: History of alcohol abuse -Xanax 0.5 mg p.o. every 6 hours as needed anxiety Postoperative pain -Well-controlled Resp: Supplemental oxygen as needed Tobacco dependence -Smoking cessation CV: Hypotension: Resolved -Likely secondary to sepsis -Reviewed random cortisol given 100 mg Solu-Cortef bolus 1 Fluids/Renal: Acute kidney injury: Improving Hypokalemia -Additional replacement today: 60 MBq p.o., 60 MBq IV -Recheck BMP at 2 PM -Discontinue additional IV fluids today ID: Severe sepsis with septic shock -Vancomycin and clindamycin -Source control achieved after operating room yesterday -Discontinue clindamycin GI/Nutrition: Hypoalbuminemia -Unclear etiology may represent poor nutritional intake -Tolerating diet Heme: DVT prophylaxis -Heparin 5000 units every 8 hours Anemia -Unclear etiology at this time we will send iron studies: Ferritin within normal limits trans-ferritin and saturation is low which can be seen in the setting of acute disease -Reticulocyte count within normal limits -Question pre-existing renal disease since patient was hypokalemic and possibly low on erythropoietin, will send haptoglobin to exclude hemolysis Endocrine: Possible relative adrenal insufficiency -Solu-Cortef 1 -Send TSH and T4: Within normal limits Vascular access: Right femoral triple-lumen, discontinue after potassium replacement today Code Status: Full Mast catheter: Discontinue after discontinuation of triple-lumen Patient stable for downgrade out of ICU today Consults & Procedures Consultants: General Surgery Procedures: Incision and drainage March 10, 2018 Data Medications: Current Inpatient Medications Medications (Trade) Dose Ordered Sig/Lianna Route Start Time Stop Time Status Last Admin Dose Admin Norepinephrine Bitartrate 8 mg/ Dextrose 508 ml @ 0 mls/hr Q0M PRN IV 03/10/18 00:04 04/09/18 00:03 8/17/18 00:27 15.4 MLS/HR Acetaminophen (Tylenol Tab) 650 mg Q4H PRN PO 03/10/18 00:15 04/09/18 00:14 Ondansetron HCl (Zofran Inj) 4 mg Q6H PRN IV 03/10/18 00:15 04/09/18 00:14 Miscellaneous Information (Icu Protocol For Hyperglycemia) 1 ea PRN PRN N/A 03/10/18 00:15 03/12/18 00:14 Vancomycin HCl (Consult) 1 ea UD PRN N/A 03/10/18 00:15 04/09/18 00:14 Clindamycin Phosphate 900 mg/ Dextrose 106 ml @ 100 mls/hr Q8H IV 03/10/18 06:00 03/20/18 05:59 03/11/18 05:50 100 MLS/HR Albuterol/ Ipratropium (Duoneb) 3 ml Q4R PRN INH 03/10/18 01:30 04/09/18 01:29 Heparin Sodium (Porcine) (Heparin Sq 5000 Unit/0.5ml) 5,000 unit Q8 SQ 03/10/18 06:00 04/09/18 05:59 03/11/18 05:57 5,000 UNIT Ascorbic Acid 1500 mg/Thiamine HCl 100 mg/Sodium Chloride 104 ml @ 207 mls/hr Q6H IV 03/10/18 02:00 03/13/18 20:31 03/11/18 01:41 207 MLS/HR Alprazolam (Xanax Tab) 0.5 mg Q6H PRN PO 03/10/18 10:45 04/09/18 10:44 03/10/18 11:32 0.5 MG Famotidine 20 mg/ Syringe 5 ml @ 2.5 mls/min Q24H IV 03/10/18 11:00 04/09/18 10:59 03/10/18 11:32 2.5 MLS/MIN Vancomycin HCl 1250 mg/Sodium Chloride 275 ml @ 125 mls/hr Q24H IV 03/11/18 04:00 03/21/18 03:59 03/11/18 03:43 125 MLS/HR Parenteral Electrolyte Solution 1,000 ml @ 200 mls/hr Q5H IV 03/10/18 19:00 04/09/18 18:59 03/11/18 05:50 200 MLS/HR Vital Signs: Date Time Temp Pulse Resp B/P (MAP) Pulse Ox O2 Delivery O2 Flow Rate FiO2 03/11/18 06:01 36.5 56 11 81/48 (59) 100 Nasal Cannula 2.0 03/11/18 05:32 56 13 121/48 (72) Nasal Cannula 2.0 03/11/18 05:01 56 12 123/66 (85) 99 Nasal Cannula 2.0 03/11/18 04:32 62 19 108/70 (83) 96 Nasal Cannula 2.0 03/11/18 04:01 55 15 118/66 (83) 97 Nasal Cannula 2.0 03/11/18 03:31 54 15 103/65 (78) 98 Nasal Cannula 2.0 03/11/18 03:01 60 15 128/66 (86) 96 Nasal Cannula 2.0 03/11/18 02:01 55 10 96/52 (67) 93 Nasal Cannula 2.0 03/11/18 01:31 56 14 115/58 (77) 96 Nasal Cannula 2.0 03/11/18 01:01 58 92/48 (63) Nasal Cannula 2.0 03/11/18 00:31 58 14 96/45 (62) 94 Nasal Cannula 2.0 03/11/18 00:01 53 14 83/41 (55) 93 Nasal Cannula 2.0 03/10/18 23:31 54 19 108/67 (81) Nasal Cannula 2.0 03/10/18 23:01 52 16 109/71 (84) Nasal Cannula 2.0 03/10/18 22:31 60 15 100/61 (74) 96 Nasal Cannula 2.0 03/10/18 22:02 68 22 119/99 (106) 98 Nasal Cannula 2.0 03/10/18 21:31 59 16 104/62 (76) 99 Nasal Cannula 2.0 03/10/18 21:16 58 14 93/50 (64) 97 Nasal Cannula 2.0 03/10/18 21:01 54 13 106/58 (74) 100 Nasal Cannula 2.0 03/10/18 20:46 61 12 123/48 (73) 91 Nasal Cannula 2.0 03/10/18 20:31 53 13 111/69 (83) Nasal Cannula 2.0 03/10/18 20:16 53 13 110/66 (81) Nasal Cannula 2.0 03/10/18 20:04 92 Nasal Cannula 2.0 03/10/18 20:01 36.4 55 15 106/65 (79) Nasal Cannula 2.0 03/10/18 19:46 57 15 111/62 (78) Nasal Cannula 2.0 03/10/18 19:31 60 13 95/48 (64) Nasal Cannula 2.0 03/10/18 19:16 60 14 89/45 (60) Nasal Cannula 2.0 03/10/18 19:01 57 14 89/48 (62) Nasal Cannula 2.0 03/10/18 18:15 59 18 87/66 (73) 96 Room Air 03/10/18 17:30 62 15 107/57 (74) 98 Nasal Cannula 2.0 03/10/18 17:16 63 13 96/58 (71) 92 03/10/18 17:00 55 15 95/54 (68) 94 03/10/18 16:45 54 14 84/50 (61) 94 Nasal Cannula 2.0 03/10/18 16:30 54 13 90/53 (65) 94 Nasal Cannula 2.0 03/10/18 16:15 61 17 101/60 (74) 94 Nasal Cannula 2.0 03/10/18 16:00 36.9 58 13 109/78 (88) 97 Nasal Cannula 2.0 03/10/18 15:45 64 13 97/61 (73) 95 Nasal Cannula 2.0 03/10/18 15:30 57 15 87/61 (70) 95 Nasal Cannula 2.0 03/10/18 15:15 59 13 88/60 (69) 95 Nasal Cannula 2.0 03/10/18 15:00 58 14 96/63 (74) 98 Nasal Cannula 2.0 03/10/18 14:45 60 14 99/61 (74) 98 Nasal Cannula 2.0 18 14:30 60 15 101/64 (76) 98 Nasal Cannula 2.0 03/10/18 14:15 61 11 94/64 (74) 87 Room Air 03/10/18 14:00 56 16 132/73 (92) 96 Room Air 03/10/18 12:31 71 18 100/52 (68) 03/10/18 12:26 74 16 105/55 (72) 92 Room Air 03/10/18 12:23 77 17 93/47 (62) 83 03/10/18 12:16 75 19 89/58 (68) 93 03/10/18 12:11 69 20 81/57 (65) 96 03/10/18 12:05 36.4 74 15 82/48 (59) 93 Room Air 03/10/18 12:02 36.4 75 15 82/48 94 Room Air 03/10/18 11:52 75 16 88/42 97 Room Air 03/10/18 11:42 72 16 95/62 92 Room Air 03/10/18 11:32 75 16 105/66 94 Room Air 03/10/18 11:22 36.4 78 14 81/47 94 Room Air 03/10/18 10:15 83 6 101/55 (70) 98 03/10/18 10:00 87 7 87/42 (57) 90 Nasal Cannula 2.0 03/10/18 09:45 91 21 81/40 (54) 92 03/10/18 09:30 91 16 89/38 (55) 94 03/10/18 09:00 91 22 74/50 (58) 94 03/10/18 08:45 90 23 96/49 (65) 03/10/18 08:30 87 20 98/58 (71) 03/10/18 08:15 83 23 113/59 (77) 100 03/10/18 08:00 36.8 82 20 111/66 (81) 94 Nasal Cannula 2.0 03/10/18 08:00 Nasal Cannula 03/10/18 08:00 Room Air 03/10/18 07:45 81 19 113/66 (82) Laboratory Results: Last 24 Hours Test 03/10/18 12:05 03/10/18 12:06 03/10/18 14:11 03/10/18 16:39 Sodium Level 139 mmol/L Potassium Level 3.6 mmol/L Chloride Level 107 mmol/L Carbon Dioxide Level 20 mmol/L Anion Gap 12.0 mmol/L Blood Urea Nitrogen 32 mg/dl Creatinine 2.57 mg/dl Est Creatinine Clear Calc Drug Dose 32.4 ml/min Estimated GFR () 30.4 Estimated GFR (Non- 26.2 BUN/Creatinine Ratio 12.5 Random Glucose 165 mg/dl Calcium Level 7.9 mg/dl Ionized Calcium 1.10 mmol/l Vitamin B12 Level 453 pg/mL Folate 9.37 ng/mL Lyme Disease IgG Antibody NEG Lyme Disease IgM Antibody NEG Absolute Reticulocyte Count 0.04 10^6/uL Percent Reticulocyte Count 1.2 % Iron Level 20 mcg/dl Total Iron Binding Capacity 117 mcg/dl Transferrin 95 mg/dl Transferrin % Saturation 15 % Ferritin 820.0 ng/ml Thyroid Stimulating Hormone (TSH) 0.518 uIu/ml Bedside Glucose (other) 190 mg/dl Test 03/11/18 04:42 White Blood Count 14.21 K/uL Red Blood Count 2.99 M/uL Hemoglobin 8.7 g/dL Hematocrit 25.9 % Mean Corpuscular Volume 86.6 fL Mean Corpuscular Hemoglobin 29.1 pg Mean Corpuscular Hemoglobin Concent 33.6 g/dl Platelet Count 303 K/uL Mean Platelet Volume 8.2 fL Neutrophils (%) (Auto) 85.9 % Lymphocytes (%) (Auto) 7.1 % Monocytes (%) (Auto) 5.8 % Eosinophils (%) (Auto) 0.3 % Basophils (%) (Auto) 0.1 % Neutrophils # (Auto) 12.22 K/uL Lymphocytes # (Auto) 1.01 K/uL Monocytes # (Auto) 0.82 K/uL Eosinophils # (Auto) 0.04 K/uL Basophils # (Auto) 0.01 K/uL RDW Standard Deviation 46.0 fL RDW Coefficient of Variation 14.5 % Immature Granulocyte % (Auto) 0.8 % Immature Granulocyte # (Auto) 0.11 K/uL Echinocytes 1+ Sodium Level 143 mmol/L Potassium Level 3.0 mmol/L Chloride Level 109 mmol/L Carbon Dioxide Level 22 mmol/L Anion Gap 12.0 mmol/L Blood Urea Nitrogen 30 mg/dl Creatinine 2.07 mg/dl Est Creatinine Clear Calc Drug Dose 40.3 ml/min Estimated GFR () 39.4 Estimated GFR (Non- 34.0 BUN/Creatinine Ratio 14.6 Random Glucose 104 mg/dl Calcium Level 7.9 mg/dl Phosphorus Level 3.8 mg/dl Magnesium Level 2.3 mg/dl Prealbumin 5.2 mg/dl Procalcitonin 1.98 ng/ml
--- NOTE | 2018-03-11 08:30 | Surgery Progress Note ---
Surgery Progress Note Date of Service Mar 11, 2018. Subjective Post OP Day: 1 pt resting comfortably Objective Vital Signs: Date Time Temp Pulse Resp B/P (MAP) Pulse Ox O2 Delivery O2 Flow Rate FiO2 03/11/18 08:00 Room Air 03/11/18 08:00 36.8 61 15 84/47 (59) 96 Room Air 03/11/18 07:00 61 18 108/64 (79) 03/11/18 06:01 36.5 56 11 81/48 (59) 100 Nasal Cannula 2.0 03/11/18 05:32 56 13 121/48 (72) Nasal Cannula 2.0 03/11/18 05:01 56 12 123/66 (85) 99 Nasal Cannula 2.0 03/11/18 04:32 62 19 108/70 (83) 96 Nasal Cannula 2.0 03/11/18 04:01 55 15 118/66 (83) 97 Nasal Cannula 2.0 03/11/18 03:31 54 15 103/65 (78) 98 Nasal Cannula 2.0 03/11/18 03:01 60 15 128/66 (86) 96 Nasal Cannula 2.0 03/11/18 02:01 55 10 96/52 (67) 93 Nasal Cannula 2.0 03/11/18 01:31 56 14 115/58 (77) 96 Nasal Cannula 2.0 03/11/18 01:01 58 92/48 (63) Nasal Cannula 2.0 03/11/18 00:31 58 14 96/45 (62) 94 Nasal Cannula 2.0 03/11/18 00:01 53 14 83/41 (55) 93 Nasal Cannula 2.0 03/10/18 23:31 54 19 108/67 (81) Nasal Cannula 2.0 03/10/18 23:01 52 16 109/71 (84) Nasal Cannula 2.0 03/10/18 22:31 60 15 100/61 (74) 96 Nasal Cannula 2.0 03/10/18 22:02 68 22 119/99 (106) 98 Nasal Cannula 2.0 03/10/18 21:31 59 16 104/62 (76) 99 Nasal Cannula 2.0 03/10/18 21:16 58 14 93/50 (64) 97 Nasal Cannula 2.0 03/10/18 21:01 54 13 106/58 (74) 100 Nasal Cannula 2.0 8/17/18 20:46 61 12 123/48 (73) 91 Nasal Cannula 2.0 03/10/18 20:31 53 13 111/69 (83) Nasal Cannula 2.0 03/10/18 20:16 53 13 110/66 (81) Nasal Cannula 2.0 03/10/18 20:04 92 Nasal Cannula 2.0 03/10/18 20:01 36.4 55 15 106/65 (79) Nasal Cannula 2.0 03/10/18 19:46 57 15 111/62 (78) Nasal Cannula 2.0 03/10/18 19:31 60 13 95/48 (64) Nasal Cannula 2.0 03/10/18 19:16 60 14 89/45 (60) Nasal Cannula 2.0 03/10/18 19:01 57 14 89/48 (62) Nasal Cannula 2.0 03/10/18 18:15 59 18 87/66 (73) 96 Room Air 03/10/18 17:30 62 15 107/57 (74) 98 Nasal Cannula 2.0 03/10/18 17:16 63 13 96/58 (71) 92 03/10/18 17:00 55 15 95/54 (68) 94 03/10/18 16:45 54 14 84/50 (61) 94 Nasal Cannula 2.0 03/10/18 16:30 54 13 90/53 (65) 94 Nasal Cannula 2.0 03/10/18 16:15 61 17 101/60 (74) 94 Nasal Cannula 2.0 03/10/18 16:00 36.9 58 13 109/78 (88) 97 Nasal Cannula 2.0 03/10/18 15:45 64 13 97/61 (73) 95 Nasal Cannula 2.0 03/10/18 15:30 57 15 87/61 (70) 95 Nasal Cannula 2.0 03/10/18 15:15 59 13 88/60 (69) 95 Nasal Cannula 2.0 03/10/18 15:00 58 14 96/63 (74) 98 Nasal Cannula 2.0 03/10/18 14:45 60 14 99/61 (74) 98 Nasal Cannula 2.0 03/10/18 14:30 60 15 101/64 (76) 98 Nasal Cannula 2.0 03/10/18 14:15 61 11 94/64 (74) 87 Room Air 03/10/18 14:00 56 16 132/73 (92) 96 Room Air 03/10/18 12:31 71 18 100/52 (68) 03/10/18 12:26 74 16 105/55 (72) 92 Room Air 03/10/18 12:23 77 17 93/47 (62) 83 03/10/18 12:16 75 19 89/58 (68) 93 03/10/18 12:11 69 20 81/57 (65) 96 03/10/18 12:05 36.4 74 15 82/48 (59) 93 Room Air 03/10/18 12:02 36.4 75 15 82/48 94 Room Air 03/10/18 11:52 75 16 88/42 97 Room Air 03/10/18 11:42 72 16 95/62 92 Room Air 03/10/18 11:32 75 16 105/66 94 Room Air 03/10/18 11:22 36.4 78 14 81/47 94 Room Air 03/10/18 10:15 83 6 101/55 (70) 98 03/10/18 10:00 87 7 87/42 (57) 90 Nasal Cannula 2.0 03/10/18 09:45 91 21 81/40 (54) 92 03/10/18 09:30 91 16 89/38 (55) 94 03/10/18 09:00 91 22 74/50 (58) 94 03/10/18 08:45 90 23 96/49 (65) 03/10/18 08:30 87 20 98/58 (71) Respiratory/Chest: no respiratory distress, no accessory muscle use Incision(s): findings (wound with some drainage. iodoform packing intact) Laboratory Results: Results Past 24 Hours Test 03/10/18 12:05 03/10/18 12:06 03/10/18 14:11 03/10/18 16:39 Range/Units Sodium Level 139 136-145 mmol/L Potassium Level 3.6 3.5-5.1 mmol/L Chloride Level 107 98-107 mmol/L Carbon Dioxide Level 20 21-32 mmol/L Anion Gap 12.0 3-11 mmol/L Blood Urea Nitrogen 32 7-18 mg/dl Creatinine 2.57 0.60-1.40 mg/dl Est Creatinine Clear Calc Drug Dose 32.4 ml/min Estimated GFR () 30.4 Estimated GFR (Non- 26.2 BUN/Creatinine Ratio 12.5 10-20 Random Glucose 165 70-99 mg/dl Calcium Level 7.9 8.5-10.1 mg/dl Ionized Calcium 1.10 1.12-1.32 mmol/l Vitamin B12 Level 453 211-911 pg/mL Folate 9.37 >5.38 ng/mL Lyme Disease IgG Antibody NEG NEG Lyme Disease IgM Antibody NEG NEG Absolute Reticulocyte Count 0.04 0.02-0.10 10^6/uL Percent Reticulocyte Count 1.2 0.5-2.0 % Iron Level 20 35-175 mcg/dl Total Iron Binding Capacity 117 250-450 mcg/dl Transferrin 95 200-360 mg/dl Transferrin % Saturation 15 20-50 % Ferritin 820.0 8.0-388.0 ng/ml Thyroid Stimulating Hormone (TSH) 0.518 0.300-4.500 uIu/ml Bedside Glucose (other) 190 70-99 mg/dl Test 03/11/18 04:42 Range/Units White Blood Count 14.21 4.8-10.8 K/uL Red Blood Count 2.99 4.7-6.1 M/uL Hemoglobin 8.7 14.0-18.0 g/dL Hematocrit 25.9 42-52 % Mean Corpuscular Volume 86.6 80-100 fL Mean Corpuscular Hemoglobin 29.1 25-34 pg Mean Corpuscular Hemoglobin Concent 33.6 32-36 g/dl Platelet Count 303 130-400 K/uL Mean Platelet Volume 8.2 7.4-10.4 fL Neutrophils (%) (Auto) 85.9 % Lymphocytes (%) (Auto) 7.1 % Monocytes (%) (Auto) 5.8 % Eosinophils (%) (Auto) 0.3 % Basophils (%) (Auto) 0.1 % Neutrophils # (Auto) 12.22 1.4-6.5 K/uL Lymphocytes # (Auto) 1.01 1.2-3.4 K/uL Monocytes # (Auto) 0.82 0.11-0.59 K/uL Eosinophils # (Auto) 0.04 0-0.5 K/uL Basophils # (Auto) 0.01 0-0.2 K/uL RDW Standard Deviation 46.0 36.4-46.3 fL RDW Coefficient of Variation 14.5 11.5-14.5 % Immature Granulocyte % (Auto) 0.8 % Immature Granulocyte # (Auto) 0.11 0.00-0.02 K/uL Echinocytes 1+ Sodium Level 143 136-145 mmol/L Potassium Level 3.0 3.5-5.1 mmol/L Chloride Level 109 98-107 mmol/L Carbon Dioxide Level 22 21-32 mmol/L Anion Gap 12.0 3-11 mmol/L Blood Urea Nitrogen 30 7-18 mg/dl Creatinine 2.07 0.60-1.40 mg/dl Est Creatinine Clear Calc Drug Dose 40.3 ml/min Estimated GFR () 39.4 Estimated GFR (Non- 34.0 BUN/Creatinine Ratio 14.6 10-20 Random Glucose 104 70-99 mg/dl Calcium Level 7.9 8.5-10.1 mg/dl Phosphorus Level 3.8 2.5-4.9 mg/dl Magnesium Level 2.3 1.8-2.4 mg/dl Prealbumin 5.2 20-40 mg/dl Procalcitonin 1.98 0-0.5 ng/ml Microbiology Results 03/10/18 Gram Stain - Final, Resulted 03/10/18 Bacterial Culture, Resulted Pending Assessment & Plan sepsis secondary to soft tissue infection off pressors now wbc improved continue local wound care. will change packing tomorrow.
[2018-03-11] MEDS: POTASSIUM CHLR 20 MEQ / WTR 20 MEQ IV SCH ×3 (08:35→12:17)
--- NOTE | 2018-03-11 09:43 | Progress Note ---
Subjective Date of Service: Mar 11, 2018. Subjective Pt evaluation today including: conversation w/ patient, physical exam, chart review, lab review, review of studies, conversation w/ chain sales consultant, review of inpatient medication list Voiding: will catheter in place off pressor support, BP in borderline, pleasant, eating well, no c/o Problem List Medical Problems: (1) THELMA (acute kidney injury) Status: Acute (2) Diastolic dysfunction Permanent Comment: ECHO 03/10/18: grade II Status: Chronic (3) Hypocalcemia Status: Acute (4) Hypokalemia Status: Acute (5) Tricuspid regurgitation Permanent Comment: ECHO 03/10/18 Mild-mod Status: Chronic Review of Systems Constitutional: + weakness, + fatigue, No fever, No chills, No sweats, No weight loss, No problem reported Eyes: No worsening of vision, No eye pain, No redness, No discharge, No diplopia ENT: No hearing loss, No unusual epistaxis, No nasal symptoms, No sore throat, No tinnitus, No dental problems, No trouble swallowing Respiratory: No cough, No sputum, No wheezing, No shortness of breath, No dyspnea on exertion, No dyspnea at rest, No hemoptysis Cardiac: No chest pain, No orthopnea, No PND, No edema, No claudication, No palpitations Abdomen: No pain, No nausea, No vomiting, No diarrhea, No constipation Musculoskeletal: No joint pain, No muscle pain, No swelling, No calf pain Male : No dysuria, No urinary frequency, No incontinence, No nocturia more than once/night, No slowing stream, No hematuria Neurologic: No memory loss, No paralysis, No weakness, No numbness/tingling, No vertigo, No balance problems Psychiatric: No depression symptoms, No anhedonism, No anxiety, No insomnia, No substance abuse Heme: No abnormal bleeding/bruising, No clotting problems, No swollen lymph nodes, No night sweats Endo: No fatigue, No excessive thirst, No excessive urination Skin: + problem reported (left lower leg in dressing), No rash, No itch, No new /changing skin lesions, No color change, No bleeding Objective Vital Signs Date Time Temp Pulse Resp B/P (MAP) Pulse Ox O2 Delivery O2 Flow Rate FiO2 03/11/18 08:00 Room Air 03/11/18 08:00 36.8 61 15 84/47 (59) 96 Room Air 03/11/18 07:00 61 18 108/64 (79) 03/11/18 06:01 36.5 56 11 81/48 (59) 100 Nasal Cannula 2.0 03/11/18 05:32 56 13 121/48 (72) Nasal Cannula 2.0 03/11/18 05:01 56 12 123/66 (85) 99 Nasal Cannula 2.0 03/11/18 04:32 62 19 108/70 (83) 96 Nasal Cannula 2.0 03/11/18 04:01 55 15 118/66 (83) 97 Nasal Cannula 2.0 03/11/18 03:31 54 15 103/65 (78) 98 Nasal Cannula 2.0 03/11/18 03:01 60 15 128/66 (86) 96 Nasal Cannula 2.0 03/11/18 02:01 55 10 96/52 (67) 93 Nasal Cannula 2.0 03/11/18 01:31 56 14 115/58 (77) 96 Nasal Cannula 2.0 03/11/18 01:01 58 92/48 (63) Nasal Cannula 2.0 03/11/18 00:31 58 14 96/45 (62) 94 Nasal Cannula 2.0 03/11/18 00:01 53 14 83/41 (55) 93 Nasal Cannula 2.0 03/10/18 23:31 54 19 108/67 (81) Nasal Cannula 2.0 03/10/18 23:01 52 16 109/71 (84) Nasal Cannula 2.0 03/10/18 22:31 60 15 100/61 (74) 96 Nasal Cannula 2.0 03/10/18 22:02 68 22 119/99 (106) 98 Nasal Cannula 2.0 18 21:31 59 16 104/62 (76) 99 Nasal Cannula 2.0 18 21:16 58 14 93/50 (64) 97 Nasal Cannula 2.0 03/10/18 21:01 54 13 106/58 (74) 100 Nasal Cannula 2.0 18 20:46 61 12 123/48 (73) 91 Nasal Cannula 2.0 18 20:31 53 13 111/69 (83) Nasal Cannula 2.0 18 20:16 53 13 110/66 (81) Nasal Cannula 2.0 03/10/18 20:04 92 Nasal Cannula 2.0 03/10/18 20:01 36.4 55 15 106/65 (79) Nasal Cannula 2.0 03/10/18 19:46 57 15 111/62 (78) Nasal Cannula 2.0 18 19:31 60 13 95/48 (64) Nasal Cannula 2.0 03/10/18 19:16 60 14 89/45 (60) Nasal Cannula 2.0 03/10/18 19:01 57 14 89/48 (62) Nasal Cannula 2.0 03/10/18 18:15 59 18 87/66 (73) 96 Room Air 03/10/18 17:30 62 15 107/57 (74) 98 Nasal Cannula 2.0 03/10/18 17:16 63 13 96/58 (71) 92 03/10/18 17:00 55 15 95/54 (68) 94 03/10/18 16:45 54 14 84/50 (61) 94 Nasal Cannula 2.0 03/10/18 16:30 54 13 90/53 (65) 94 Nasal Cannula 2.0 03/10/18 16:15 61 17 101/60 (74) 94 Nasal Cannula 2.0 03/10/18 16:00 36.9 58 13 109/78 (88) 97 Nasal Cannula 2.0 03/10/18 15:45 64 13 97/61 (73) 95 Nasal Cannula 2.0 03/10/18 15:30 57 15 87/61 (70) 95 Nasal Cannula 2.0 03/10/18 15:15 59 13 88/60 (69) 95 Nasal Cannula 2.0 03/10/18 15:00 58 14 96/63 (74) 98 Nasal Cannula 2.0 03/10/18 14:45 60 14 99/61 (74) 98 Nasal Cannula 2.0 03/10/18 14:30 60 15 101/64 (76) 98 Nasal Cannula 2.0 03/10/18 14:15 61 11 94/64 (74) 87 Room Air 03/10/18 14:00 56 16 132/73 (92) 96 Room Air 03/10/18 12:31 71 18 100/52 (68) 03/10/18 12:26 74 16 105/55 (72) 92 Room Air 03/10/18 12:23 77 17 93/47 (62) 83 03/10/18 12:16 75 19 89/58 (68) 93 03/10/18 12:11 69 20 81/57 (65) 96 03/10/18 12:05 36.4 74 15 82/48 (59) 93 Room Air 03/10/18 12:02 36.4 75 15 82/48 94 Room Air 03/10/18 11:52 75 16 88/42 97 Room Air 03/10/18 11:42 72 16 95/62 92 Room Air 03/10/18 11:32 75 16 105/66 94 Room Air 03/10/18 11:22 36.4 78 14 81/47 94 Room Air 03/10/18 10:15 83 6 101/55 (70) 98 03/10/18 10:00 87 7 87/42 (57) 90 Nasal Cannula 2.0 03/10/18 09:45 91 21 81/40 (54) 92 Physical Exam General Appearance: WD/WN, no apparent distress Eyes: normal inspection, PERRL, EOMI, sclerae normal ENT: normal ENT inspection, hearing grossly normal, pharynx normal Neck: supple, no adenopathy, thyroid normal, no JVD, no carotid bruits, trachea midline Respiratory/Chest: chest non-tender, lungs clear, normal breath sounds, no respiratory distress, no accessory muscle use Cardiovascular: regular rate, rhythm, no edema, no gallop, no JVD, no murmur Abdomen: normal bowel sounds, non tender, soft, no organomegaly, no pulsatile mass Extremities: normal range of motion, non-tender, normal inspection, no pedal edema, no calf tenderness, normal capillary refill, pelvis stable Neurologic/Psychiatric: metalizer II-XII nml as tested, no motor/sensory deficits, alert, normal mood/affect, oriented x 3 Skin: normal color, warm/dry, + pertinent finding (left lower leg wound s/p I& D , in dressing) Lymphatic: no adenopathy Laboratory Results Last 24 Hours Test 03/10/18 12:05 03/10/18 12:06 03/10/18 14:11 03/10/18 16:39 Sodium Level 139 mmol/L Potassium Level 3.6 mmol/L Chloride Level 107 mmol/L Carbon Dioxide Level 20 mmol/L Anion Gap 12.0 mmol/L Blood Urea Nitrogen 32 mg/dl Creatinine 2.57 mg/dl Est Creatinine Clear Calc Drug Dose 32.4 ml/min Estimated GFR () 30.4 Estimated GFR (Non- 26.2 BUN/Creatinine Ratio 12.5 Random Glucose 165 mg/dl Calcium Level 7.9 mg/dl Ionized Calcium 1.10 mmol/l Vitamin B12 Level 453 pg/mL Folate 9.37 ng/mL Lyme Disease IgG Antibody NEG Lyme Disease IgM Antibody NEG Absolute Reticulocyte Count 0.04 10^6/uL Percent Reticulocyte Count 1.2 % Iron Level 20 mcg/dl Total Iron Binding Capacity 117 mcg/dl Transferrin 95 mg/dl Transferrin % Saturation 15 % Ferritin 820.0 ng/ml Thyroid Stimulating Hormone (TSH) 0.518 uIu/ml Bedside Glucose (other) 190 mg/dl Test 03/11/18 04:42 White Blood Count 14.21 K/uL Red Blood Count 2.99 M/uL Hemoglobin 8.7 g/dL Hematocrit 25.9 % Mean Corpuscular Volume 86.6 fL Mean Corpuscular Hemoglobin 29.1 pg Mean Corpuscular Hemoglobin Concent 33.6 g/dl Platelet Count 303 K/uL Mean Platelet Volume 8.2 fL Neutrophils (%) (Auto) 85.9 % Lymphocytes (%) (Auto) 7.1 % Monocytes (%) (Auto) 5.8 % Eosinophils (%) (Auto) 0.3 % Basophils (%) (Auto) 0.1 % Neutrophils # (Auto) 12.22 K/uL Lymphocytes # (Auto) 1.01 K/uL Monocytes # (Auto) 0.82 K/uL Eosinophils # (Auto) 0.04 K/uL Basophils # (Auto) 0.01 K/uL RDW Standard Deviation 46.0 fL RDW Coefficient of Variation 14.5 % Immature Granulocyte % (Auto) 0.8 % Immature Granulocyte # (Auto) 0.11 K/uL Echinocytes 1+ Sodium Level 143 mmol/L Potassium Level 3.0 mmol/L Chloride Level 109 mmol/L Carbon Dioxide Level 22 mmol/L Anion Gap 12.0 mmol/L Blood Urea Nitrogen 30 mg/dl Creatinine 2.07 mg/dl Est Creatinine Clear Calc Drug Dose 40.3 ml/min Estimated GFR () 39.4 Estimated GFR (Non- 34.0 BUN/Creatinine Ratio 14.6 Random Glucose 104 mg/dl Calcium Level 7.9 mg/dl Phosphorus Level 3.8 mg/dl Magnesium Level 2.3 mg/dl Prealbumin 5.2 mg/dl Procalcitonin 1.98 ng/ml Assessment and Plan 57yo male transferred from [facility] with suspected septic shock Septic shock from left lower extremity abscess Left lower extremity abscess s/P I$D, history of insect bit CT at OSH with no evidence of the former cont Vancomycin and Clindamycin cont Vitamin C and Thiamine Potassium secondary from septic shock, continue Levophed gtt, titrate for goal MAP of 65, a central line in the right groin area continue IV fluid His active smoking, will consult to quit smoking if he agreed to, Kidney failure with BUN=40, Cr=3.4. Upon admission unknown baseline renal function Avoid nephrotoxic agents Mildly anemic patient has no sign of acute bleeding now, will follow up Check stool Hemoccult, vitamin B12 folic acid and iron panel, GI and DVT prophylaxis covered, discussed with senior automation engineer Continued [facility] stay due to: multiple IV medications needed Discharge planning: home
[2018-03-11] MEDS: NICOTINE 21 MG/24 HR TDSY TD SCH (11:46)
[2018-03-11] MEDS: ALPRAZOLAM 0.5 MG TAB PO PRN ×2 (12:15→18:46)
[2018-03-11 14:55] LABS: CREATININE 2.23 mg/dl (0.60-1.40); POTASSIUM 3.5 mmol/L (3.5-5.1)
[2018-03-11] MEDS: ACETAMINOPHEN 325 MG TAB PO PRN ×2 (18:48→22:49)
[2018-03-11] MEDS ORDERED: LORAZEPAM 0.5 MG TAB PO STA (22:11)
[2018-03-11] MEDS ORDERED: FENTANYL CITRATE INJ 50 MCG/1 ML 2 ML VIAL IV ONE (22:15)
[2018-03-11] MEDS ORDERED: MoRPHine SULFATE 2 MG/ML CARP IV STA (22:21)
[2018-03-12 00:02] VITALS: BP 96/59; PULSE 80; TEMP 38.1; O2SAT 96
[2018-03-12] MEDS: VANCOMYCIN IV 1,250 MG in SODIUM CHLORIDE 0.9% 250ML 250 ML IV SCH (04:26)
[2018-03-12] MEDS: HEPARIN SOD 5000 UNIT/0.5 ML CARP SQ SCH ×3 (06:07→21:14)
[2018-03-12 07:10] VITALS: BP 96/59; PULSE 80; TEMP 37.4
[2018-03-12] MEDS: NICOTINE 21 MG/24 HR TDSY TD SCH (08:28)
[2018-03-12] MEDS: ALPRAZOLAM 0.5 MG TAB PO PRN ×2 (08:29→17:28)
[2018-03-12] MEDS: ACETAMINOPHEN 325 MG TAB PO PRN ×2 (08:29→17:29)
[2018-03-12 08:55] LABS: CALCIUM 8.6 mg/dl (8.5-10.1); CREATININE 2.17 mg/dl (0.60-1.40); POTASSIUM 4.3 mmol/L (3.5-5.1)
[2018-03-12 09:13] LABS: HEMATOCRIT 27.6 % (42-52); HEMOGLOBIN 9.3 g/dL (14.0-18.0); MEAN CELL VOLUME 87.9 fL (80-100); MEAN CORPUSCULAR HEMOGLOBIN 29.6 pg (25-34); MEAN CORPUSCULAR HGB CONC 33.7 g/dl (32-36); MEAN PLATELET VOLUME 8.5 fL (7.4-10.4); PLATELET COUNT 421 K/uL (130-400); RED CELL DISTRIBUTION WIDTH CV 14.7 % (11.5-14.5); RED CELL DISTRIBUTION WIDTH SD 47.1 fL (36.4-46.3); WHITE BLOOD COUNT 15.46 K/uL (4.8-10.8)
--- NOTE | 2018-03-12 09:41 | Surgery Progress Note ---
Surgery Progress Note Date of Service Mar 12, 2018. Subjective Post OP Day: 2 + feeling well feeling much better overall Objective Vital Signs: Date Time Temp Pulse Resp B/P (MAP) Pulse Ox O2 Delivery O2 Flow Rate FiO2 03/12/18 07:10 37.4 80 18 96/59 (71) 03/12/18 00:02 38.1 80 18 96/59 (71) 96 Room Air 03/11/18 22:48 38.6 81 18 94/55 (68) 92 Room Air 03/11/18 20:00 Room Air 03/11/18 16:35 36.7 84 18 120/69 (86) 96 03/11/18 16:15 36.8 74 18 96 03/11/18 16:00 74 18 101/61 (74) 96 Room Air 03/11/18 15:00 73 20 91/71 (78) 95 Room Air 03/11/18 14:55 73 22 90/53 (65) 92 Room Air 03/11/18 13:00 81 22 83/45 (58) 03/11/18 12:00 36.8 77 22 96/61 (73) 95 Room Air 03/11/18 11:00 64 15 87/52 (64) 97 Room Air 03/11/18 10:00 64 15 87/55 (66) 97 Room Air General Appearance: no apparent distress Respiratory/Chest: no respiratory distress, no accessory muscle use Incision(s): clean, dry, intact, findings (packing changed. wound looks good. minimal drainage. no odor) Laboratory Results: Results Past 24 Hours Test 03/11/18 14:12 03/11/18 20:20 03/12/18 07:37 03/12/18 08:14 Range/Units Sodium Level 141 137 136-145 mmol/L Potassium Level 3.5 4.3 3.5-5.1 mmol/L Chloride Level 109 105 98-107 mmol/L Carbon Dioxide Level 23 24 21-32 mmol/L Anion Gap 9.0 8.0 3-11 mmol/L Blood Urea Nitrogen 28 28 7-18 mg/dl Creatinine 2.23 2.17 0.60-1.40 mg/dl Est Creatinine Clear Calc Drug Dose 36.8 37.8 ml/min Estimated GFR () 36.0 37.3 Estimated GFR (Non- 31.1 32.1 BUN/Creatinine Ratio 12.7 12.8 10-20 Random Glucose 105 82 70-99 mg/dl Calcium Level 8.0 8.6 8.5-10.1 mg/dl Bedside Glucose 121 88 70-99 mg/dl Test 03/12/18 09:02 Range/Units White Blood Count 15.46 4.8-10.8 K/uL Red Blood Count 3.14 4.7-6.1 M/uL Hemoglobin 9.3 14.0-18.0 g/dL Hematocrit 27.6 42-52 % Mean Corpuscular Volume 87.9 80-100 fL Mean Corpuscular Hemoglobin 29.6 25-34 pg Mean Corpuscular Hemoglobin Concent 33.7 32-36 g/dl Platelet Count 421 130-400 K/uL Mean Platelet Volume 8.5 7.4-10.4 fL RDW Standard Deviation 47.1 36.4-46.3 fL RDW Coefficient of Variation 14.7 11.5-14.5 % Assessment & Plan 03/12/18 POD 2 doing well packing changed antibiotics per ID. cultures pending clinically much improved will need visiting nurses at d/c for wound care 03/11/18 sepsis secondary to soft tissue infection off pressors now wbc improved continue local wound care. will change packing tomorrow. sepsis secondary to soft tissue infection off pressors now wbc improved continue local wound care. will change packing tomorrow.
[2018-03-12 09:42] LABS: BASO % 0.1 %; BASO ABS # 0.02 K/uL (0-0.2); EOS % 0.2 %; EOS ABS # 0.03 K/uL (0-0.5); IG# 0.09 K/uL (0.00-0.02); LYMPH % 5.8 %; MONO % 4.3 %; MONO ABS # 0.66 K/uL (0.11-0.59); NEUT ABS # 13.76 K/uL (1.4-6.5)
--- NOTE | 2018-03-12 13:28 | Progress Note ---
Subjective Date of Service: Mar 12, 2018. Subjective Pt evaluation today including: conversation w/ patient, conversation w/ family , physical exam, chart review, conversation w/ creative consultant, review of inpatient medication list Voiding: no voiding problems Pleasant, doing fair, tolerate diet, eating drinking, pain fairly controlled in the left lower extremity, Problem List Medical Problems: (1) THELMA (acute kidney injury) Status: Acute (2) Diastolic dysfunction Permanent Comment: ECHO 03/10/18: grade II Status: Chronic (3) Hypocalcemia Status: Acute (4) Hypokalemia Status: Acute (5) Tricuspid regurgitation Permanent Comment: ECHO 03/10/18 Mild-mod Status: Chronic Review of Systems Constitutional: + weakness, + fatigue, No fever, No chills, No sweats, No weight loss, No problem reported Eyes: No worsening of vision, No eye pain, No redness, No discharge, No diplopia ENT: No hearing loss, No unusual epistaxis, No nasal symptoms, No sore throat, No tinnitus, No dental problems, No trouble swallowing Respiratory: No cough, No sputum, No wheezing, No shortness of breath, No dyspnea on exertion, No dyspnea at rest, No hemoptysis Cardiac: No chest pain, No orthopnea, No PND, No edema, No claudication, No palpitations Abdomen: No pain, No nausea, No vomiting, No diarrhea, No constipation Musculoskeletal: No joint pain, No muscle pain, No swelling, No calf pain Male : No dysuria, No urinary frequency, No incontinence, No nocturia more than once/night, No slowing stream, No hematuria Neurologic: No memory loss, No paralysis, No weakness, No numbness/tingling, No vertigo, No balance problems Psychiatric: No depression symptoms, No anhedonism, No anxiety, No insomnia, No substance abuse Heme: No abnormal bleeding/bruising, No clotting problems, No swollen lymph nodes, No night sweats Endo: No fatigue, No excessive thirst, No excessive urination Skin: + problem reported (Left lower extremity wounds in dressing), No itch, No new/changing skin lesions, No color change, No bleeding Objective Vital Signs Date Time Temp Pulse Resp B/P (MAP) Pulse Ox O2 Delivery O2 Flow Rate FiO2 03/12/18 08:00 Room Air 03/12/18 07:10 37.4 80 18 96/59 (71) 03/12/18 00:02 38.1 80 18 96/59 (71) 96 Room Air 03/11/18 22:48 38.6 81 18 94/55 (68) 92 Room Air 03/11/18 20:00 Room Air 03/11/18 16:35 36.7 84 18 120/69 (86) 96 03/11/18 16:15 36.8 74 18 96 03/11/18 16:00 74 18 101/61 (74) 96 Room Air 03/11/18 15:00 73 20 91/71 (78) 95 Room Air 03/11/18 14:55 73 22 90/53 (65) 92 Room Air Physical Exam General Appearance: WD/WN, no apparent distress, + pertinent finding (Pleasant conversational,) Eyes: normal inspection, PERRL, EOMI, sclerae normal ENT: normal ENT inspection, hearing grossly normal, pharynx normal Neck: supple, no adenopathy, thyroid normal, no JVD, no carotid bruits, trachea midline Respiratory/Chest: chest non-tender, normal breath sounds, no respiratory distress, no accessory muscle use, + decreased breath sounds Cardiovascular: regular rate, rhythm, no edema, no gallop, no JVD, no murmur Abdomen: normal bowel sounds, non tender, soft, no organomegaly, no pulsatile mass Extremities: non-tender, normal inspection, no pedal edema, no calf tenderness , normal capillary refill, pelvis stable, + pertinent finding (Left lower extremity local wound S/P I&D, local in dressing,) Neurologic/Psychiatric: 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, no motor/sensory deficits, alert, normal mood/affect, oriented x 3 Skin: normal color, warm/dry, no rash Lymphatic: no adenopathy Laboratory Results Last 24 Hours Test 03/11/18 14:12 03/11/18 20:20 03/12/18 07:37 03/12/18 08:14 Sodium Level 141 mmol/L 137 mmol/L Potassium Level 3.5 mmol/L 4.3 mmol/L Chloride Level 109 mmol/L 105 mmol/L Carbon Dioxide Level 23 mmol/L 24 mmol/L Anion Gap 9.0 mmol/L 8.0 mmol/L Blood Urea Nitrogen 28 mg/dl 28 mg/dl Creatinine 2.23 mg/dl 2.17 mg/dl Est Creatinine Clear Calc Drug Dose 36.8 ml/min 37.8 ml/min Estimated GFR () 36.0 37.3 Estimated GFR (Non- 31.1 32.1 BUN/Creatinine Ratio 12.7 12.8 Random Glucose 105 mg/dl 82 mg/dl Calcium Level 8.0 mg/dl 8.6 mg/dl Bedside Glucose 121 mg/dl 88 mg/dl Test 03/12/18 09:02 03/12/18 11:31 White Blood Count 15.46 K/uL Red Blood Count 3.14 M/uL Hemoglobin 9.3 g/dL Hematocrit 27.6 % Mean Corpuscular Volume 87.9 fL Mean Corpuscular Hemoglobin 29.6 pg Mean Corpuscular Hemoglobin Concent 33.7 g/dl Platelet Count 421 K/uL Mean Platelet Volume 8.5 fL Neutrophils (%) (Auto) 89.0 % Lymphocytes (%) (Auto) 5.8 % Monocytes (%) (Auto) 4.3 % Eosinophils (%) (Auto) 0.2 % Basophils (%) (Auto) 0.1 % Neutrophils # (Auto) 13.76 K/uL Lymphocytes # (Auto) 0.90 K/uL Monocytes # (Auto) 0.66 K/uL Eosinophils # (Auto) 0.03 K/uL Basophils # (Auto) 0.02 K/uL RDW Standard Deviation 47.1 fL RDW Coefficient of Variation 14.7 % Immature Granulocyte % (Auto) 0.6 % Immature Granulocyte # (Auto) 0.09 K/uL Bedside Glucose 101 mg/dl Assessment and Plan 57yo male transferred from [facility] on March 10, 2018 with suspected septic shock , which was secondary to left lower extremity abscess I&D was done by surgeon Septic shock from left lower extremity abscess was in ICU in the first day of admission, required Levophed for pressor support, which was tapered off and transferred to [facility] on March 11, 2018, Sepsis resolved and continues stable Left lower extremity abscess s/P I$D, history of insect bit, Lyme disease were checked which were negative I&D shows GBS growth, blood culture negative so far, if blood culture negative , will be able to switch antibiotic to such as Unasyn, if blood culture positive should consider ID consultation and echocardiogram Continue vancomycin and Clindamycin cont Vitamin C and Thiamine Tobacco abuse disorder, has consult quit smoking offered help, nicotine patch ordered Kidney failure with BUN=40, Cr=3.4. Upon admission unknown baseline renal function Avoid nephrotoxic agents Mildly anemic , Hb stable improving, patient has no sign of acute bleeding now, will follow up Check stool Hemoccult which is pending, vitamin B12 folic acid were normal, and iron panel shows chronic anemia GI and DVT prophylaxis covered, Increase activity PTOT, social worker delinquency prevention for discharge plan Continued [facility] stay due to: multiple IV medications needed Discharge planning: home
[2018-03-12 15:46] VITALS: BP 97/63; PULSE 75; TEMP 37.3; O2SAT 97
[2018-03-12 23:05] VITALS: BP 117/65; PULSE 70; TEMP 36.7; O2SAT 94
[2018-03-13 01:05] VITALS: O2SAT 94
[2018-03-13] MEDS ORDERED: VANCOMYCIN TROUGH ONE ×2 (03:30)
[2018-03-13] MEDS: VANCOMYCIN IV 1,250 MG in SODIUM CHLORIDE 0.9% 250ML 250 ML IV SCH (03:33)
[2018-03-13 03:50] LABS: BASO % 0.1 %; BASO ABS # 0.02 K/uL (0-0.2); EOS % 0.4 %; EOS ABS # 0.06 K/uL (0-0.5); HEMATOCRIT 27.6 % (42-52); HEMOGLOBIN 9.3 g/dL (14.0-18.0); IG# 0.13 K/uL (0.00-0.02); LYMPH % 8.2 %; MEAN CELL VOLUME 88.7 fL (80-100); MEAN CORPUSCULAR HEMOGLOBIN 29.9 pg (25-34); MEAN CORPUSCULAR HGB CONC 33.7 g/dl (32-36); MEAN PLATELET VOLUME 8.4 fL (7.4-10.4); MONO ABS # 1.08 K/uL (0.11-0.59); NEUT % 82.3 %; NEUT ABS # 11.05 K/uL (1.4-6.5); PLATELET COUNT 388 K/uL (130-400); RED CELL DISTRIBUTION WIDTH CV 14.4 % (11.5-14.5); RED CELL DISTRIBUTION WIDTH SD 46.8 fL (36.4-46.3); WHITE BLOOD COUNT 13.44 K/uL (4.8-10.8)
[2018-03-13 04:22] LABS: CREATININE 2.2 mg/dl (0.60-1.40); POTASSIUM 3.9 mmol/L (3.5-5.1)
[2018-03-13] MEDS: HEPARIN SOD 5000 UNIT/0.5 ML CARP SQ SCH ×2 (05:59→14:32)
--- NOTE | 2018-03-13 07:46 | Anesthesiology Progress Note ---
Anesthesia Post Op Note Date & Time Mar 13, 2018 at 07:45 Vital Signs Pain Intensity: 0.0 Vital Signs Past 12 Hours Date Time Temp Pulse Resp B/P (MAP) Pulse Ox O2 Delivery O2 Flow Rate FiO2 03/13/18 01:05 94 Room Air 03/12/18 23:05 36.7 70 18 117/65 (82) 94 Room Air Notes Mental Status: alert / awake / arousable, participated in evaluation Pt Amnestic to Procedure: Yes Nausea / Vomiting: adequately controlled Pain: adequately controlled Airway Patency, RR, SpO2: stable & adequate BP & HR: stable & adequate Hydration State: stable & adequate Anesthetic Complications: no major complications apparent
[2018-03-13 07:57] VITALS: BP 107/65; PULSE 74; TEMP 36.7; O2SAT 93
[2018-03-13] MEDS: NICOTINE 21 MG/24 HR TDSY TD SCH (08:40)
[2018-03-13] MEDS: ALPRAZOLAM 0.5 MG TAB PO PRN ×2 (08:43→18:58)
[2018-03-13] MEDS: ACETAMINOPHEN 325 MG TAB PO PRN ×2 (08:44→18:58)
--- NOTE | 2018-03-13 10:17 | Surgery Progress Note ---
Surgery Progress Note Date of Service Mar 13, 2018. Subjective + feeling well, + ambulating, + pain controlled, No complaints Patient ambulating from bathroom to bed upon entering the room. Reports that he is doing well- dressing and packing change was last completed yesterday evening. Objective Vital Signs: Date Time Temp Pulse Resp B/P (MAP) Pulse Ox O2 Delivery O2 Flow Rate FiO2 03/13/18 07:57 36.7 74 20 107/65 (79) 93 03/13/18 01:05 94 Room Air 03/12/18 23:05 36.7 70 18 117/65 (82) 94 Room Air 03/12/18 19:12 Room Air 03/12/18 15:46 37.3 75 18 97/63 (74) 97 Room Air General Appearance: WD/WN, no apparent distress Laboratory Results: Results Past 24 Hours Test 03/12/18 11:31 03/12/18 16:45 03/13/18 03:31 Range/Units Bedside Glucose 101 80 70-99 mg/dl White Blood Count 13.44 4.8-10.8 K/uL Red Blood Count 3.11 4.7-6.1 M/uL Hemoglobin 9.3 14.0-18.0 g/dL Hematocrit 27.6 42-52 % Mean Corpuscular Volume 88.7 80-100 fL Mean Corpuscular Hemoglobin 29.9 25-34 pg Mean Corpuscular Hemoglobin Concent 33.7 32-36 g/dl Platelet Count 388 130-400 K/uL Mean Platelet Volume 8.4 7.4-10.4 fL Neutrophils (%) (Auto) 82.3 % Lymphocytes (%) (Auto) 8.2 % Monocytes (%) (Auto) 8.0 % Eosinophils (%) (Auto) 0.4 % Basophils (%) (Auto) 0.1 % Neutrophils # (Auto) 11.05 1.4-6.5 K/uL Lymphocytes # (Auto) 1.10 1.2-3.4 K/uL Monocytes # (Auto) 1.08 0.11-0.59 K/uL Eosinophils # (Auto) 0.06 0-0.5 K/uL Basophils # (Auto) 0.02 0-0.2 K/uL RDW Standard Deviation 46.8 36.4-46.3 fL RDW Coefficient of Variation 14.4 11.5-14.5 % Immature Granulocyte % (Auto) 1.0 % Immature Granulocyte # (Auto) 0.13 0.00-0.02 K/uL Sodium Level 141 136-145 mmol/L Potassium Level 3.9 3.5-5.1 mmol/L Chloride Level 106 98-107 mmol/L Carbon Dioxide Level 26 21-32 mmol/L Anion Gap 9.0 3-11 mmol/L Blood Urea Nitrogen 26 7-18 mg/dl Creatinine 2.20 0.60-1.40 mg/dl Est Creatinine Clear Calc Drug Dose 37.3 ml/min Estimated GFR () 36.6 Estimated GFR (Non- 31.6 BUN/Creatinine Ratio 11.7 10-20 Random Glucose 133 70-99 mg/dl Calcium Level 8.0 8.5-10.1 mg/dl Vancomycin Level Trough 13.8 SEE COMMENT mcg/ml Assessment & Plan 03/13/18 POD #3- patient doing well, tolerating packing and dressing changes. Packing and dressing changed this AM- tolerated well, without incident. Antibiotics per ID. Will contact Case Management about obtaining visiting nurse for assistance with wound care. 03/12/18 POD 2 doing well packing changed antibiotics per ID. cultures pending clinically much improved will need visiting nurses at d/c for wound care
[2018-03-13] MEDS ORDERED: CLC/300 PO (11:32)
--- NOTE | 2018-03-13 11:42 | Discharge Instructions ---
Discharge Instructions Date of Service Mar 13, 2018. Admission Reason for Admission: Septic Shock; Acute Renal Failure Discharge Discharge Diagnosis / Problem: Septic shock, Group B strep abscess left leg Discharge Goals Goal(s): Improve function, Improve disease control Activity Recommendations Activity Limitations: resume your previous activity . Instructions / Follow-Up Instructions / Follow-Up Medications: - CLINDAMYCIN: 300mg four times a day for the next 10 days to treat Streptococcal infection Left leg abscess, Group A beta streptococcal infection improved dramatically with incision and drainage of abscess and antibiotics three separate wound cultures grew strep, no evidence of staph infection blood cultures done the day of admission negative for growth so there is no evidence of bacteremia vitals and labs are stable will discharge you on Clindamycin for 10 more days wound care: change packing daily, change gauze dressing as needed for any excessive drainage take Tylenol for pain recommend close follow up with Dr. Amor at the end of the week for hospital follow up Current Hospital Diet Patient's current hospital diet: AHA Diet (Heart Healthy) Discharge Diet Recommended Diet: AHA Diet (Heart Healthy) Procedures Procedures Performed: incision and drainage/sharp debridement LLE wound/abcess Pending Studies Studies pending at discharge: no Medical Emergencies . Who to Call and When: Medical Emergencies: If at any time you feel your situation is an emergency, please call 911 immediately. . Non-Emergent Contact Non-Emergency issues call your: Primary Care Provider Call Non-Emergent contact if: you have a fever, your pain is worsening, wound has increased drainage, wound has increased redness, wound has increased pain, you have any medication questions . . "Provider Documentation" section prepared by Urbano Prado. . [place] Drug Monitoring Program Search Results: no issues identified
[2018-03-13 12:05] VITALS: BP 107/65; PULSE 74; TEMP 36.7; O2SAT 93
--- NOTE | 2018-03-13 16:16 | Discharge Summary ---
Discharge Summary Date of Service Mar 13, 2018. Discharge Summary Admission Date: Mar 10, 2018 at 00:01 Discharge Date: Mar 13, 2018 Discharge Disposition: Home with services Principal Diagnosis: Left leg abscess, group A beta streptococcal infection Problems/Secondary Diagnoses: Acute kidney injury on CKD Septic shock Procedures: Incision and drainage of left leg abscess Consultations: General surgery Critical care Medication Reconciliation New Medications: Clindamycin HCl (Clindamycin HCl) 300 Mg Cap 1 CAP PO QID for 10 Days, #40 CAP Continued Medications: Alprazolam (Xanax) 1 Mg Tab 1 MG PO QID, TAB Hydrochlorothiazide (Hctz) 25 Mg Tab 1 TAB PO DAILY for 30 Days, #30 TAB 5 Refills Discharge Exam Patient feeling well, no pain in left leg, no fever or chills. Packing changed this AM by surgery. Discussed with their PA, recommended changing packing daily. CM arranged for home nursing visits. Review of Systems: Constitutional: No fever, No chills, No sweats, No weight loss, No weakness , No fatigue, No problem reported Eyes: No worsening of vision, No eye pain, No redness, No discharge, No diplopia, No problem reported ENT: No hearing loss, No unusual epistaxis, No nasal symptoms, No sore throat, No tinnitus, No dental problems, No trouble swallowing, No problem reported Respiratory: No cough, No sputum, No wheezing, No shortness of breath, No dyspnea on exertion, No dyspnea at rest, No hemoptysis, No problem reported Cardiovascular: No chest pain, No orthopnea, No PND, No edema, No claudication, No palpitations, No problem reported Abdomen: No pain, No nausea, No vomiting, No diarrhea, No constipation, No GI bleeding, No problem reported Musculoskeletal: No joint pain, No muscle pain, No swelling, No calf pain, No problem reported Genitourinary - Male: No hematuria, No dysuria, No urinary frequency, No urinary urgency Neurologic: No memory loss, No paralysis, No weakness, No numbness/tingling , No vertigo, No balance problems, No problem reported Psychiatric: No depression symptoms, No anhedonism, No anxiety, No insomnia , No substance abuse, No problem reported Endocrine: No fatigue, No excessive thirst, No excessive urination, No problem reported Hematologic / Lymphatic: No abnormal bleeding/bruising, No clotting problems , No swollen lymph nodes, No night sweats, No problem reported Integumentary: No rash, No itch, No new/changing skin lesions, No color change, No bleeding, No problem reported Physical Exam: General Appearance: WD/WN, no apparent distress Eyes: normal inspection, EOMI, sclerae normal ENT: normal ENT inspection, hearing grossly normal, pharynx normal Neck: supple, no adenopathy, no JVD, trachea midline Respiratory/Chest: chest non-tender, lungs clear, normal breath sounds, no respiratory distress, no accessory muscle use Cardiovascular: regular rate, rhythm, no edema, no gallop, no JVD, no murmur , normal peripheral pulses Abdomen / GI: normal bowel sounds, non tender, soft, no organomegaly Extremities: normal inspection, no calf tenderness, normal capillary refill , no pedal edema, normal range of motion, pelvis stable 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, no motor/sensory deficits , alert, normal mood/affect, normal reflexes, oriented x 3 Skin: + pertinent finding (left leg abscess packed, dressed, no surrounding cellulitis, minimal tenderness) Hospital Course 57yo male transferred from [facility] on March 10, 2018 with suspected septic shock , which was secondary to left lower extremity abscess I&D was done by surgeon Septic shock from left lower extremity abscess was in ICU in the first day of admission, required Levophed for pressor support, which was tapered off and transferred to [facility] on March 11, 2018 Septic shock due to Group A beta strep abscess, cellulitis s/p I&D of the left leg abscess shock and sepsis resolved, WBC still up slightly at 13k but trending down quickly no fever, vitals stable three separate wound cultures grew out group A beta strep, blood cultures show no growth treated with Vancomycin IV will change to Clindamycin 300mg PO QID for 10 more days change packing daily, home nursing arranged will follow up with PCP in one week Tobacco abuse disorder, has consult quit smoking offered help, nicotine patch ordered while admitted THELMA on CKD stage III, with BUN=40, Cr=3.4 on admission Cr down to 2.2 today making adequate urine, electrolytes stable needs to follow up with PCP Mildly anemic , Hb stable improving, patient has no sign of acute bleeding now GI and DVT prophylaxis covered Total Time Spent: Greater than 30 minutes This includes examination of the patient, discharge planning, medication reconciliation, and communication with other providers. Discharge Instructions Please refer to the electronic Patient Visit Report (Discharge Instructions) for additional information. Follow-Up Dr. Amor in one week Additional Copies To Nate Amor
== END 2018-03-13 19:40 | disposition home or self-care (01) | DRG 853 ==
LOC: C.MSICU 03-10 00:01 → ENRESERV 03-11 15:39 → C.4E 03-11 16:15
PROVIDERS: ADMIT Internal Medicine; ATTEND Internal Medicine
PROC: 0KBT0ZZ Excision of Left Lower Leg Muscle, Open Approach (ICD-10-PCS; principal; 2018-03-10 09:15)
DX: A41.9 Sepsis, unspecified organism (principal); R65.21 Severe sepsis with septic shock; N17.9 Acute kidney failure, unspecified; L02.416 Cutaneous abscess of left lower limb; N18.3 Chronic kidney disease, stage 3 (moderate); F17.200 Nicotine dependence, unspecified, uncomplicated; D64.9 Anemia, unspecified; I12.9 Hypertensive chronic kidney disease with stage 1 through stage 4 chronic kidney disease, or unspecified chronic kidney disease; B95.5 Unspecified streptococcus as the cause of diseases classified elsewhere